=== PATIENT | male | born 1950 | race Caucasian/White ===

== ENCOUNTER 2018-11-30 00:43 | Inpatient (IN) | payer MEDICARE ==
[~2018-11-30] VITALS: Ht 177.8 cm; Wt 73.1 kg
--- NOTE | 2018-11-30 01:08 | NUR ---
PT BIBRA. C/O "GLF AT SNF" PT ALTERED AT BASELINE. FORHEAD LAC NOTED. MD MONTES
--- NOTE | 2018-11-30 01:33 | NUR ---
PATIENT FAMILY AT BEDSIDE. TAKING PATIENT TO CT
--- NOTE | 2018-11-30 02:00 | NUR ---
UNABLE TO COMPLETE CT SCAN. PATIENT MOVING TOO MUCH. MD AWARE
[2018-11-30] MEDS ORDERED: diphenhydrAMINE HCL 50 MG/ML VIAL IV ONE ×2 (02:30→04:00)
[2018-11-30] MEDS ORDERED: LORAZEPAM INJ 2 MG/ML VIAL IV ONE (02:30)
[2018-11-30 02:32] LABS: BASOPHILS # (AUTO) 0.1 /CMM (0.0-0.2); BASOPHILS % (AUTO) 1.1 % (0.0-2.0); EOSINOPHILS % (AUTO) 0.5 % (0.0-6.0); HEMATOCRIT 39 % (39-51); HEMOGLOBIN 12.9 g/dL (13.5-17.5); LYMPHOCYTES # (AUTO) 1.3 /CMM (0.8-4.8); LYMPHOCYTES % (AUTO) 14.5 % (20.0-44.0); MEAN CORPUSCULAR HGB CONC 34 g/dl (31.0-36.0); MEAN CORPUSCULAR VOLUME 90 fL (80-96); MONOCYTES # (AUTO) 0.9 /CMM (0.1-1.30); MONOCYTES % (AUTO) 9.8 % (2.0-12.0); NEUTROPHILS # (AUTO) 6.5 /CMM (1.8-8.9); NEUTROPHILS % (AUTO) 74.1 % (43.0-81.0); PLATELET COUNT (AUTO) 170 /CMM (150-450); WHITE BLOOD COUNT (AUTO) 8.8 K/uL (4.3-11.0)
[2018-11-30 02:40] LABS: CALCIUM, SERUM 8.6 mg/dL (8.5-10.1); CARBON DIOXIDE 26 mmol/L (21-32); CHLORIDE 103 mmol/L (98-107); CREATININE 1.1 mg/dL (0.6-1.3); GLUCOSE 102 mg/dL (74-106); POTASSIUM 4.1 mmol/L (3.5-5.1); SODIUM SERUM 138 mmol/L (136-145); UREA NITROGEN, BLOOD 9 mg/dL (7-18)
[2018-11-30] MEDS ORDERED: diphenhydrAMINE HCL 50 MG/ML VIAL ONE ×2 (02:40→03:45)
[2018-11-30 02:45] LABS: ALANINE AMINOTRANSFERASE 32 U/L (12-78); ALBUMIN 2.6 g/dL (3.4-5.0); ALCOHOL, BLOOD < 3 mg/dL (0-0); ALKALINE PHOSPHATASE 81 U/L (46-116); ASPARTATE AMINOTRANSFERASE 32 U/L (15-37); BILIRUBIN,DIRECT 0.3 mg/dL (0.0-0.2); BILIRUBIN,TOTAL 0.8 mg/dL (0.2-1.0); TOTAL PROTEIN, SERUM 6.4 g/dL (6.4-8.2)
[2018-11-30] MEDS ORDERED: HYDROMORPHONE 1 MG/1 ML DISP.SYRIN ONE (03:11)
[2018-11-30] MEDS ORDERED: HYDROMORPHONE 1 MG/1 ML DISP.SYRIN IV ONE (03:30)
[2018-11-30 03:33] LABS: APPEARANCE,URINE CLOUDY (CLEAR); BILIRUBIN,URINE 1+ (NEGATIVE); BLOOD, URINE TRACE-INTA Ery/uL (NEGATIVE); COLOR,URINE AMBER (YELLOW); KETONES,URINE TRACE (NEGATIVE); LEUKOCYTE ESTERASE ,URINE 1+ (NEGATIVE); NITRITE, URINE POSITIVE (NEGATIVE); PROTEIN,URINE 2+ mg/dl (NEGATIVE); UGLUCOSE NEGATIVE (NEGATIVE); UROBILINOGEN,URINE 0.2 EU/dL (0.2)
[2018-11-30] MEDS ORDERED: CEFTRIAXONE 1 G in IV D5W 50 ML IV ONE (04:00)
[2018-11-30 04:13] LABS: BACTERIA,URINE Many /HPF (None Seen); SQUAMOUS EPITHELIAL CELL,UR Rare /HPF (None Seen); WBC,URINE TOO NUMEROUS TO COUN /HPF (0-3)
[2018-11-30] MEDS ORDERED: CEFTRIAXONE 1GM BAG (ER ONLY) 50 ML IV ONE (04:18)
--- NOTE | 2018-11-30 04:35 | NUR ---
JOSE D JAVIER TALKING TO [facility].
--- NOTE | 2018-11-30 05:25 | NUR ---
RN medsurg notes Received info for new admission Pt from ER nurse SPEEDY Morrissey.
[2018-11-30] MEDS ORDERED: CLON0.1T14 PO (05:27)
--- NOTE | 2018-11-30 05:27 | NUR ---
REPORT GIVEN TO DEVYN RUFF
[2018-11-30] MEDS ORDERED: IV NS 0.9% 1,000 ML IV PRN (05:33)
--- NOTE | 2018-11-30 05:40 | NUR ---
RN medsurg admission notes Pt is arrived at the unit with a gurney from ER. Pt is 68 Y O Male with a diagnose of Mechanical fall by Dr. Hendrickson. Pt is altered. Pt's at the bedside. Respiration is normal. No SOB. No S/S of distress noted. IV sites at Right forearm # 20 is clean, intact and flush without resistance. Skin assessment done and pictures taken and placed at Pt's chart. Pt's belonging checked by VIJAY Jensen. Contact precautions is maintained for C-Diff. Safety precautions is maintained. Bed at low position, brakes locked, side rails upX3, and call light is within reach. Will continue to monitor.
[2018-11-30 05:45] VITALS: BP 94/57
[2018-11-30] MEDS ORDERED: ACETAMINOPHEN 325 MG TABLET PO PRN (06:00)
[2018-11-30] MEDS ORDERED: MAGNESIUM HYDROXIDE 30 ML UDC PO PRN (06:00)
[2018-11-30] MEDS ORDERED: MAG HYDROX/AL HYDROX/SIMETH 30 ML UDC PO PRN (06:00)
[2018-11-30] MEDS ORDERED: Z GUARD REMEDY 2 OZ OINT TP PRN (06:00)
[2018-11-30] MEDS ORDERED: HYDROCODONE/APAP 5/325MG 1 EACH TABLET PO PRN (06:00)
[2018-11-30] MEDS ORDERED: ONDANSETRON HCL/PF 4 MG/2 ML VIAL IVP PRN (06:00)
--- NOTE | 2018-11-30 07:00 | NUR ---
RN medsurg closing notes Pt is resting in bed comfortably. Pt's at the bed side. Respiration is normal. No SOB. No S/S of distress noted. IV sites at R forearm is clean, intact, patent, and SL. Contact precautions is maintained for C-Diff. Safety precautions is maintained. Bed at low position, call light is within reach. Will endorse to morning nurse for GOYO.
--- NOTE | 2018-11-30 07:15 | NUR ---
MS RN NOTES PATIENT IN BED EYES CLOSED, AROUSE TO TACTILE STIMULI. NO ACUTE DISTRESS NOTED, BREATHING UNLABORED. IV ACCESS PATENT AND INTACT, NO REDNESS OR SWELLING NOTED. SAFETY MEASURES IN PLACE. CALL LIGHT WITHIN REACH WILL CONTINUE TO MONITOR ACCORDINGLY.
[2018-11-30] MEDS: PANTOPRAZOLE 40 MG TABLET.DR PO SCH (07:30)
[2018-11-30 08:00] VITALS: BP 87/46
--- NOTE | 2018-11-30 08:30 | NUR ---
MS RN NOTES PATIENT SLEEPING AROUSE TO TACTILE STIMULI, OFFERED MEDICATION DUE, PATIENT TOO SLEEPY WENT BACK TO BED.
[2018-11-30] MEDS: DOCUSATE SODIUM 100 MG CAPSULE PO SCH ×2 (09:00→16:13)
[2018-11-30] MEDS ORDERED: ASCO500T10 PO (09:31)
[2018-11-30] MEDS ORDERED: FOLI1TAB16 PO (09:31)
[2018-11-30] MEDS ORDERED: FAMO20TA8 PO (09:31)
[2018-11-30] MEDS ORDERED: ACET-868 PO (09:31)
[2018-11-30] MEDS ORDERED: CLON0.3P TD (09:31)
[2018-11-30] MEDS ORDERED: VALP250S3 PO (09:31)
[2018-11-30] MEDS ORDERED: L.AC1CAP6 PO (09:31)
[2018-11-30] MEDS ORDERED: [UNRECOGNIZED DRUG - CODE] PO (09:31)
[2018-11-30] MEDS ORDERED: PROT946L PO (09:31)
[2018-11-30] MEDS ORDERED: ALBU2.5V38 IH (09:31)
[2018-11-30] MEDS ORDERED: CLON1TAB12 PO (09:31)
[2018-11-30] MEDS ORDERED: AMLO10TA4 PO (09:31)
[2018-11-30] MEDS ORDERED: THIA100V2 PO (09:31)
[2018-11-30] MEDS ORDERED: TEMA15CA PO (09:31)
[2018-11-30] MEDS ORDERED: TEMAZEPAM 15 MG CAPSULE PO PRN (15:30)
[2018-11-30] MEDS ORDERED: KETOROLAC TROMETHAMINE INJ 30 MG/ML VIAL IM PRN (15:30)
[2018-11-30] MEDS: AMLODIPINE BESYLATE 10 MG TABLET PO SCH (15:30)
[2018-11-30] MEDS ORDERED: hydrALAZINE HCL 25 MG TABLET PO PRN (15:30)
[2018-11-30] MEDS: FOLIC ACID 1 MG TABLET PO SCH (16:12)
[2018-11-30] MEDS: VALPROIC ACID 250 MG/5 ML UDC PO SCH (16:12)
[2018-11-30] MEDS: FAMOTIDINE (20 MG) 20 MG TABLET PO SCH (16:13)
[2018-11-30] MEDS: clonazePAM 1 MG TABLET PO SCH (16:13)
[2018-11-30] MEDS: THIAMINE HCL 100 MG TABLET PO SCH (16:13)
--- NOTE | 2018-11-30 18:15 | NUR ---
MS RN NOTES PATIENT BECOMES AGITATED AND IV ACCESS GOT PULLED OUT ACCIDENTALLY BY PATIENT AND UNABLE TO INSERT NEW IV ACCESS AT THIS TIME NOTIFIED DR DENI CRUZ WITH NEW ORDERS FOR HALDOL LACTATE 0.5 MG IM ONCE. ORDER READ BACK COMPLETE. NOTED AND CARRIED OUT.
[2018-11-30] MEDS ORDERED: HALOPERIDOL LACTATE INJ 5 MG/ML VIAL IM ONE ×2 (18:30→19:00)
--- NOTE | 2018-11-30 18:55 | NUR ---
MS RN NOTES KANA AT BEDSIDE REFUSED HALDOL ADMINISTRATION FOR NOW DESPITE OF EXPLANATION OF RISKS AND BENEFITS.
--- NOTE | 2018-11-30 19:00 | NUR ---
MS RN NOTE RECEIVED PT IN STABLE CONDITION, A/O X1, IN ROOM WITH AND 1:1 SITTER. PT CURRENTLY AGITATED, AND WALKING AROUND ROOM. NO SIGNS OF SOB OR DISTRESS, NO INDICATIONS OF PAIN. PER REPORT FROM RN, PT DOES NOT HAVE IV ACCESS, MD AWARE. ALL CURRENT NEEDS MET. PTS. BED REMAINS LOW, LOCKED, SAFETY PRECAUTIONS IN PLACE. WILL CONT. TO MONITOR.
--- NOTE | 2018-11-30 19:00 | NUR ---
MS RN NOTE PER PT , HALDOL DOES NOT WORK FOR PT. SHE DOES NOT WANT TO GIVE THE HALDOL. RISKS AND BENEFITS MADE AWARE, WITH VERBALIZATION OF UNDERSTANDING.
--- NOTE | 2018-11-30 19:00 | NUR ---
MS RN NOTE SPOKE WITH KANA (), CONTINUES TO REFUSE HALDOL ADMINISTRATION. RISKS AND BENEFITS MADE AWARE WITH VERBALIZATION OF UNDERSTANDING.
--- NOTE | 2018-11-30 19:00 | NUR ---
MS RN NOTES PATIENT LYING IN BED, SITTER AND AT BED STILL AGITATED. NO ACUTE DISTRESS NOTED, BREATHING UNLABORED. NO IV ACCESS AT THIS TIME, DR DENI CRUZ AWARE. SAFETY MEASURES IN PLACE. CALL LIGHT WITHIN REACH. WILL CONTINUE TO MONITOR ACCORDINGLY AND WILL ENDORSE TO NIGHT NURSE FOR CONTINUITY OF CARE.
[2018-11-30] MEDS: ALBUTEROL FS 2.5 MG/3 ML VIAL.NEB IH SCH (19:30)
[2018-11-30 20:00] VITALS: BP 120/72
[2018-12-01] MEDS: ALBUTEROL FS 2.5 MG/3 ML VIAL.NEB IH SCH ×4 (01:30→20:19)
--- NOTE | 2018-12-01 06:21 | NUR ---
MS RN NOTE PT IN STABLE CONDITION, A/O X1, IN ROOM WITH 1:1 SITTER. PT CURRENTLY AWAKE, AGITATED. NO SIGNS OF SOB OR DISTRESS, NO INDICATIONS OF PAIN. NO IV ACCESS, MD AWARE. ALL CURRENT NEEDS MET. PTS. BED REMAINS LOW, LOCKED, SAFETY PRECAUTIONS IN PLACE. WILL CONT. TO MONITOR AND ENDORSE TO NEXT SHIFT FOR GOYO.
--- NOTE | 2018-12-01 07:35 | NUR ---
RN MS OPENING NOTES Patient erceived on room air, no sob noted, no s/s of pain at this time. Patient remains awake and non agitated. 1:1 with male sitter at all times. Patient remains with no IV line at this time, MD aware. Bed at the lowest setting, call light within reach.
[2018-12-01 07:53] LABS: BASOPHILS # (AUTO) 0.1 /CMM (0.0-0.2); BASOPHILS % (AUTO) 0.8 % (0.0-2.0); HEMATOCRIT 38 % (39-51); HEMOGLOBIN 12.8 g/dL (13.5-17.5); LYMPHOCYTES # (AUTO) 1.6 /CMM (0.8-4.8); LYMPHOCYTES % (AUTO) 25.9 % (20.0-44.0); MEAN CORPUSCULAR HGB CONC 34 g/dl (31.0-36.0); MEAN CORPUSCULAR VOLUME 90 fL (80-96); MONOCYTES # (AUTO) 0.7 /CMM (0.1-1.30); MONOCYTES % (AUTO) 11.7 % (2.0-12.0); NEUTROPHILS # (AUTO) 3.6 /CMM (1.8-8.9); NEUTROPHILS % (AUTO) 59.6 % (43.0-81.0); PLATELET COUNT (AUTO) 190 /CMM (150-450); RED BLOOD CELL COUNT(AUTO) 4.28 MIL/uL (4.5-6.0)
[2018-12-01 08:10] LABS: CALCIUM, SERUM 8.6 mg/dL (8.5-10.1); CREATININE 0.8 mg/dL (0.6-1.3); MAGNESIUM 2.3 mg/dL (1.8-2.4); PHOSPHORUS 3.8 mg/dL (2.5-4.9)
[2018-12-01] MEDS: FAMOTIDINE (20 MG) 20 MG TABLET PO SCH ×2 (08:32→16:58)
[2018-12-01] MEDS: AMLODIPINE BESYLATE 10 MG TABLET PO SCH (08:32)
[2018-12-01] MEDS: clonazePAM 1 MG TABLET PO SCH (08:32)
[2018-12-01] MEDS: PANTOPRAZOLE 40 MG TABLET.DR PO SCH (08:33)
[2018-12-01] MEDS: DOCUSATE SODIUM 100 MG CAPSULE PO SCH ×2 (08:33→16:58)
[2018-12-01] MEDS: VALPROIC ACID 250 MG/5 ML UDC PO SCH ×2 (08:33→16:58)
[2018-12-01] MEDS: FOLIC ACID 1 MG TABLET PO SCH (08:33)
[2018-12-01] MEDS: THIAMINE HCL 100 MG TABLET PO SCH ×2 (08:33→13:48)
[2018-12-01 08:43] LABS: THYROID STIMULATING HORMONE 1.158 uIU/mL (0.358-3.74)
--- NOTE | 2018-12-01 10:45 | NUR ---
WOUND CARE CONSULT: PT PRESENTS WITH MULTIPLE WOUNDS AND SKIN ISSUES INCLUDING RAISED AREA TO FOREHEAD, LARGE WOUND WITH YELLOW SLOUGH TO SACRAL AREA EXTENDING TO BUTTOCKS, LEFT WRIST WOUND AND ESCHARS TO LEFT LOWER LEG AND HEELS, PRESENT ON ADMISSION. RECOMMEND SURGICAL CONSULT AND DPM CONSULT. DR LUCIA CARRILLO NOTIFIED OF SURGICAL CONSULT REQUEST. DR BEGUM AWARE OF DPM CONSULT REQUEST. RECOMMENDATIONS MADE FOR WOUND CARE AND SKIN PROTECTION. DISCUSSED WITH NURSING STAFF. DEFER TO DPM FOR LOWER EXTREMITY WOUNDS. WILL SEE PRN. ISOFLEX LOW AIRLOSS BED TO BE PLACED WHEN AVAILABLE. MD IN AGREEMENT WITH PLAN OF CARE. PT MOVES ALMOST CONSTANTLY. PT IS INCONTINENT. Addendum: 12/01/18 at 1048 by VITALY BUNCH WNDNU Amended: Links added.
--- NOTE | 2018-12-01 11:31 | NUR ---
RN MS NOTES Patient removed part of his wound from his Left leg. Eschar was pulled out by patient.
[2018-12-01] MEDS ORDERED: CEFTRIAXONE 1 G VIAL IM ONE (13:00)
[2018-12-01] MEDS ORDERED: clonazePAM 0.5 MG TABLET PO SCH (13:00)
[2018-12-01] MEDS: clonazePAM 0.5 MG TABLET PO SCH ×2 (13:25→16:58)
[2018-12-01] MEDS ORDERED: CEFTRIAXONE 1 G in IV D5W 50 ML IV SCH (14:00)
--- NOTE | 2018-12-01 18:11 | NUR ---
RN MS CLOSING NOTES Patient remains on room aur, no sob noted, patient is awake and sometimes becomes agitated. No IV access because patient removes it. medications taken by patient. Bed at the lowest setting, call light within reach. Will give report to NOC RN for GOYO bedside.
--- NOTE | 2018-12-01 19:15 | NUR ---
MS RN NOTES RECEIVED PT IN BED AWAKE WITH FAMILY AT BEDSIDE WELL 1:1 SITTER. PT A/O X1. RESPIRATIONS EVEN AND UNLABORED WITH NO S/S OF ACUTE DISTRESS OR SOB NOTED. NO COMPLAINTS OF PAIN AT THIS TIME. PT WITHOUT IV ACCESS, AWARE. SAFETY MEASURE IN PLACE WITH BED IN LOWEST LOCKED POSITION WITH SIDE RAILS UP X3. CALL LIGHT WITHIN REACH. WILL CONTINUE TO MONITOR.
[2018-12-02] MEDS: ALBUTEROL FS 2.5 MG/3 ML VIAL.NEB IH SCH ×4 (02:12→19:58)
--- NOTE | 2018-12-02 07:47 | NUR ---
RN MS OPENING NOTES Received patient on room air, no sob noted, no s/s of pain at this time. Patient remains with a 1:1 sitter. Patient shows no agitation at this time. NO IV line. Bed at the lowest setting, call light within reach.
--- NOTE | 2018-12-02 07:48 | NUR ---
MS RN NOTES PT IN BED AWAKE WITH 1:1 SITTER AT BEDSIDE. PT A/O X1. RESPIRATIONS EVEN AND UNLABORED WITH NO S/S OF ACUTE DISTRESS OR SOB NOTED THROUGHOUT SHIFT. PT KEPT CLEAN, DRY, AND COMFORTABLE. PT TURNED Q2 HRS. NO COMPLAINTS OF PAIN AT THIS TIME. PT WITHOUT IV ACCESS, MD AWARE. SAFETY MEASURE IN PLACE WITH BED IN LOWEST LOCKED POSITION WITH SIDE RAILS UP X3. CALL LIGHT WITHIN REACH. WILL ENDORSE TO ONCOMING NURSE FOR GOYO.
[2018-12-02 08:00] VITALS: BP 129/77
[2018-12-02] MEDS ORDERED: clonazePAM 0.5 MG TABLET PO PRN (09:00)
[2018-12-02] MEDS: VALPROIC ACID 250 MG/5 ML UDC PO SCH ×2 (09:09→16:33)
[2018-12-02] MEDS: FOLIC ACID 1 MG TABLET PO SCH (09:09)
[2018-12-02] MEDS: clonazePAM 0.5 MG TABLET PO SCH ×3 (09:09→16:34)
[2018-12-02] MEDS: FAMOTIDINE (20 MG) 20 MG TABLET PO SCH ×2 (09:09→16:34)
[2018-12-02] MEDS: DOCUSATE SODIUM 100 MG CAPSULE PO SCH ×2 (09:09→16:34)
[2018-12-02] MEDS: THIAMINE HCL 100 MG TABLET PO SCH ×2 (09:10→09:35)
[2018-12-02] MEDS: BENZTROPINE MESYLATE (1 MG) 1 MG TABLET PO SCH ×2 (09:10→16:33)
[2018-12-02] MEDS: PANTOPRAZOLE 40 MG TABLET.DR PO SCH (09:10)
[2018-12-02] MEDS: AMLODIPINE BESYLATE 10 MG TABLET PO SCH (09:16)
[2018-12-02] MEDS ORDERED: LEVOFLOXACIN 500 MG /D5W 100ML 500 MG in PREMIX 1 EA IV SCH (10:00)
[2018-12-02] MEDS: LEVOFLOXACIN (500MG) 500 MG TABLET PO SCH (10:45)
[2018-12-02] MEDS ORDERED: risperiDONE 0.25 MG TABLET PO PRN (11:30)
[2018-12-02] MEDS: risperiDONE 1 MG TABLET PO SCH ×2 (12:33→16:33)
[2018-12-02] MEDS ORDERED: CEFTRIAXONE 1 G in IV D5W 50 ML IV SCH (14:00)
[2018-12-02 16:00] VITALS: BP 123/62
--- NOTE | 2018-12-02 18:28 | NUR ---
RN MS CLOSING NOTES Patient remains on room air, no sob noted, vital signs stable. Patient awake, and becomes agitated at times. No IV line present MD aware. Patient with 1:1 male sitter 24 hours a day. Patient able to ambulate with assistance from the sitter. Patient able to sleep today for a few hours. Bed at the lowest setting, call light within reach, side rails up x3. Will give report to RN NOC bedside for GOYO.
--- NOTE | 2018-12-02 19:30 | NUR ---
MS RN OPENING NOTE RECEIVED PATIENT IN BED. A/O X1. TOLERATING ROOM AIR. RESPIRATIONS ARE EVEN AND UNLABORED. NO SIGNS OF SOB. DENIES PAIN AT THIS TIME. NO IV ACCESS. MALE SITTER FOR 1:1. FAMILY AT THE BEDSIDE. BED IS LOW ANS LOCKED, SIDE RAILS UP X2. CALL LIGHT WITHIN REACH. WILL CONTINUE TO MONITOR.
[2018-12-02 20:00] VITALS: BP 121/68
[2018-12-02] MEDS: MUPIROCIN OINT 2% 22 GM TUBE SCH (20:36)
--- NOTE | 2018-12-02 21:27 | NUR ---
MS RN NOTE GAVE REPORT TO LYNN RUFF FOR GOYO.
[2018-12-03] MEDS: ALBUTEROL FS 2.5 MG/3 ML VIAL.NEB IH SCH ×4 (01:30→19:59)
[2018-12-03 06:59] LABS: BASOPHILS % (AUTO) 0.6 % (0.0-2.0); EOSINOPHILS % (AUTO) 2.2 % (0.0-6.0); HEMATOCRIT 36 % (39-51); LYMPHOCYTES # (AUTO) 1.3 /CMM (0.8-4.8); LYMPHOCYTES % (AUTO) 24.4 % (20.0-44.0); MEAN CORPUSCULAR HGB CONC 34 g/dl (31.0-36.0); MEAN CORPUSCULAR VOLUME 89 fL (80-96); MONOCYTES # (AUTO) 0.7 /CMM (0.1-1.30); MONOCYTES % (AUTO) 12.9 % (2.0-12.0); NEUTROPHILS # (AUTO) 3.3 /CMM (1.8-8.9); NEUTROPHILS % (AUTO) 59.9 % (43.0-81.0); PLATELET COUNT (AUTO) 213 /CMM (150-450); RED BLOOD CELL COUNT(AUTO) 4.01 MIL/uL (4.5-6.0); WHITE BLOOD COUNT (AUTO) 5.5 K/uL (4.3-11.0)
--- NOTE | 2018-12-03 07:19 | NUR ---
RN OPENING NOTE PT WAS RECEIVED IN BED AT LOWEST AND LOCKED POSITION WITH SIDE RAILS UPX2, A/O X 1 BREATHING EVEN AND UNLABORED WITH NO S/S OF ANY PAIN OR DISTRESS, ON 1:1 SITTER FOR HISTORY OF BEING AGGRESSIVE AND AGITATED, NO IV IN PLACE BUT MD AWARE, SAFETY PRECAUTIONS IN PLACE, CALL LIGHT WITHIN REACH, WILL MONITOR PT ACCORDINGLY
[2018-12-03 07:23] LABS: POTASSIUM 3.8 mmol/L (3.5-5.1)
[2018-12-03 07:36] LABS: CALCIUM, SERUM 8.2 mg/dL (8.5-10.1); CREATININE 0.6 mg/dL (0.6-1.3)
[2018-12-03 08:13] VITALS: BP 96/47
[2018-12-03] MEDS: MUPIROCIN OINT 2% 22 GM TUBE SCH ×2 (08:19→21:08)
[2018-12-03] MEDS: THIAMINE HCL 100 MG TABLET PO SCH (08:19)
[2018-12-03] MEDS: PANTOPRAZOLE 40 MG TABLET.DR PO SCH (08:19)
[2018-12-03] MEDS: DOCUSATE SODIUM 100 MG CAPSULE PO SCH ×2 (08:19→16:18)
[2018-12-03] MEDS: BENZTROPINE MESYLATE (1 MG) 1 MG TABLET PO SCH ×2 (08:20→16:18)
[2018-12-03] MEDS: FOLIC ACID 1 MG TABLET PO SCH (08:20)
[2018-12-03] MEDS: FAMOTIDINE (20 MG) 20 MG TABLET PO SCH ×2 (08:20→16:18)
[2018-12-03] MEDS: VALPROIC ACID 250 MG/5 ML UDC PO SCH ×2 (08:20→16:18)
[2018-12-03] MEDS: risperiDONE 1 MG TABLET PO SCH ×3 (08:20→16:18)
[2018-12-03] MEDS: clonazePAM 0.5 MG TABLET PO SCH ×3 (08:20→16:18)
[2018-12-03] MEDS: AMLODIPINE BESYLATE 10 MG TABLET PO SCH (08:20)
[2018-12-03] MEDS: LEVOFLOXACIN (500MG) 500 MG TABLET PO SCH (09:00)
[2018-12-03] MEDS ORDERED: CLONIDINE HCL 0.3 MG/24H PTWK 1 EA PATCH TD SCH (09:00)
--- NOTE | 2018-12-03 17:30 | NUR ---
RN NOTE PT WALKING WITH SITTER THROUGHOUT THE UNIT, STEADY GATE NOTED
--- NOTE | 2018-12-03 18:13 | NUR ---
RN CLOSING NOTE PT IN BED AT LOWEST AND LOCKED POSITION WITH SIDE RAILS UPX2, A/O X 1 BREATHING EVEN AND UNLABORED, NO PAIN OR DISTRESS NOTED AT THIS TIME, SITTER AT BEDSIDE, NO IV IN PLACE MD AWARE, SAFETY PRECAUTIONS IN PLACE, CALL LIGHT WITHIN REACH, ALL NEEDS ATTENDED TO, WILL ENDORSE TO NIGHT RN FOR GOYO.
--- NOTE | 2018-12-03 19:20 | NUR ---
MS/RN NOTES RECEIVED PT. LYING IN BED. PT. IS AWAKE AND ALERT TO SELF. PT. NEEDS FREQUENT REORIENTING. PER PT. DAVE PT. 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 BREATHING EVEN AND UNLABORED ON ROOM AIR. NO SOB, RESPIRATORY DISTRESS OR COMPLAINTS OF PAIN NOTED AT THIS TIME. PT. HAS NO IV ACCESS PER DAYSHIFT NURSE AWARE. PT. WITH 1:1 SITTER PRESENT AT BEDSIDE. PT. PRESENT AT BEDSIDE. SAFETY, ASPIRATION AND ISOLATION PRECAUTIONS IMPLEMENTED AND IN PLACE. BED LOCKED AND IN LOWEST POSITION, SIDE RAILS UP X3, BED ALARM ON, CALL LIGHT WITHIN REACH, WILL CONTINUE TO MONITOR.
[2018-12-04] MEDS: ALBUTEROL FS 2.5 MG/3 ML VIAL.NEB IH SCH ×4 (01:30→19:48)
--- NOTE | 2018-12-04 07:00 | NUR ---
MS/RN NOTES PT. IS LYING IN BED. PT. IS AWAKE AND ALERT TO SELF. BREATHING EVEN AND UNLABORED ON ROOM AIR. NO SOB, RESPIRATORY DISTRESS OR COMPLAINTS OF PAIN NOTED AT THIS TIME. PT. HAS NO IV ACCESS, MD AWARE. SAFETY, ASPIRATION AND ISOLATION PRECAUTIONS IMPLEMENTED AND IN PLACE. PT. WITH 1:1 SITTER PRESENT AT BEDSIDE. BED LOCKED AND IN LOWEST POSITION, SIDE RAILS UP X3, BED ALARM ON, CALL LIGHT WITHIN REACH, WILL ENDORSE TO DAYSHIFT NURSE FOR CONTINUITY OF CARE.
--- NOTE | 2018-12-04 07:12 | NUR ---
MS RN OPENING NOTES RECEIVED PT AWAKE IN BED IN NO ACUTE SIGNS OF DISTRESS. 1:1 SITTER AT BEDSIDE. A/O X1. CONFUSED BUT APPEARS COMFORTABLE WITH NO FACIAL GRIMACING OR MOANING NOTED. ON ROOM AIR, BREATHING EVEN AND UNLABORED. NO IV ACCESS, MD AWARE. SAFETY MEASURES IN PLACE. BED IN LOW, LOCKED POSITION WITH SIDE RAILS UP APPROPRIATE. CALL LIGHT WITHIN REACH. WILL CONTINUE TO MONITOR.
[2018-12-04] MEDS: FOLIC ACID 1 MG TABLET PO SCH (08:17)
[2018-12-04] MEDS: PANTOPRAZOLE 40 MG TABLET.DR PO SCH (08:17)
[2018-12-04] MEDS: risperiDONE 1 MG TABLET PO SCH ×3 (08:17→16:57)
[2018-12-04] MEDS: VALPROIC ACID 250 MG/5 ML UDC PO SCH ×2 (08:18→16:57)
[2018-12-04] MEDS: DOCUSATE SODIUM 100 MG CAPSULE PO SCH ×2 (08:18→16:57)
[2018-12-04] MEDS: clonazePAM 0.5 MG TABLET PO SCH ×3 (08:18→16:57)
[2018-12-04] MEDS: THIAMINE HCL 100 MG TABLET PO SCH (08:18)
[2018-12-04] MEDS: FAMOTIDINE (20 MG) 20 MG TABLET PO SCH ×2 (08:18→16:57)
[2018-12-04] MEDS: BENZTROPINE MESYLATE (1 MG) 1 MG TABLET PO SCH ×2 (08:18→16:57)
[2018-12-04] MEDS: MUPIROCIN OINT 2% 22 GM TUBE SCH ×2 (08:19→21:59)
[2018-12-04] MEDS: AMLODIPINE BESYLATE 10 MG TABLET PO SCH (08:24)
[2018-12-04] MEDS: LEVOFLOXACIN (500MG) 500 MG TABLET PO SCH (09:16)
[2018-12-04 16:00] VITALS: BP 123/73
[2018-12-04] MEDS ORDERED: ENSURE ENLIVE 237 ML LIQUID (VANILLA) PO SCH (17:00)
--- NOTE | 2018-12-04 18:44 | NUR ---
RN NOTES PATIENT SEEN AND EVALUATED BY CRISIS HOOP MACHINE OPERATOR PER LIRA RN AND PLACED PT ON 5150 HOLD STARTING TODAY AT 1841 UNTIL 12/07/2018. PT WILL BE UNDER PSYCH CARE BY DR RODRÍGUEZ. WILL ENDORSE TO ANIMAL NUTRITION CONSULTANT NURSE
--- NOTE | 2018-12-04 18:46 | NUR ---
MS RN CLOSING NOTES PT RESTING IN BED AWAKE, ALERT AND ORIENTED X1. VERBALLY RESPONSIVE. CONFUSED ON AND OFF DURING THE DAY. AT BEDSIDE. ON ROOM AIR, TOLERATING WELL WITH NO ACUTE RESPIRATORY DISTRESS NOTED THROUGHOUT THE DAY. CONTACT PRECAUTIONS FOR MRSA OF NARES AND ESBL URINE MAINTAINED. NO IV ACCESS, MD AWARE. ALL NEEDS AND CARE PROVIDED WELL. SAFETY MEASURES KEPT IN PLACE. 1:1 SITTER AT BEDSIDE. BED IN LOW, LOCKED POSITION WITH SIDE-RAILS UP APPROPRIATE. CALL LIGHT WITHIN REACH. WILL ENDORSE TO DEVELOPER ARCHITECT NURSE FOR GOYO
--- NOTE | 2018-12-04 19:57 | NUR ---
MS RN NOTES PATIENT AWAKE IN BED WITH NO DISTRESS NOTED. CALL LIGHT WITHIN REACH. NO C/O PAIN OR DISCOMFORT. FC INTACT AND PATENT. CONTACT ISOLATION OBSERVED AND MAINTAINED. ROOM FREE OF CLUTTER AND BELONGINGS KEPT NEAR BEDSIDE. BED IN LOW LOCK SETTING WITH BED ALARM ON AND FUNCTIONING PROPERLY. WILL CONTINUE TO MONITOR.
--- NOTE | 2018-12-04 22:30 | NUR ---
PATIENT TRANSFERRED VIA WC TO GPS IN STABLE CONDITION. PATIENT ACCOMPANIED BY . BEDSIDE REPORT GIVEN TO REESE.
== END 2018-12-04 22:30 | DRG 689 ==
LOC: ER 00:47 → MED 05:12
PROVIDERS: ADMIT Internal Medicine; ATTEND Nurse Practitioner Acute Care
DX: N39.0 Urinary tract infection, site not specified (principal); G93.41 Metabolic encephalopathy; F03.91 Unspecified dementia, unspecified severity, with behavioral disturbance; E51.9 Thiamine deficiency, unspecified; F05 Delirium due to known physiological condition; S00.83XA Contusion of other part of head, initial encounter; Y92.129 Unspecified place in nursing home as the place of occurrence of the external cause; I25.10 Atherosclerotic heart disease of native coronary artery without angina pectoris; L89.159 Pressure ulcer of sacral region, unspecified stage; I10 Essential (primary) hypertension; D69.6 Thrombocytopenia, unspecified; K21.9 Gastro-esophageal reflux disease without esophagitis; W07.XXXA Fall from chair, initial encounter; T67 Effects of heat and light; T25.02 Burn of unspecified degree of foot; T31.0 Burns involving less than 10% of body surface; V00-Y99 External causes of morbidity; Z82.49 Family history of ischemic heart disease and other diseases of the circulatory system; Z87.891 Personal history of nicotine dependence; Z86.73 Personal history of transient ischemic attack (TIA), and cerebral infarction without residual deficits; Z79.899 Other long term (current) drug therapy; Z73.6 Limitation of activities due to disability; F31.9 Bipolar disorder, unspecified; F19.10 Other psychoactive substance abuse, uncomplicated; B96.1 Klebsiella pneumoniae [K. pneumoniae] as the cause of diseases classified elsewhere
CPT/HCPCS: 36415; 70450-TC; 71045-TC; 72125-TC; 73030-TC; 73080-TC; 80048-TC; 80061-TC; 80076-TC; 81000-TC; 83735-TC; 84100-TC; 84443-TC; 84484-TC; 85025-TC; 85730-TC; 87081-TC; 87086-TC; 87186-TC; 92526; 92611-TC; 93307-TC; 97110-TC; 97116-TC; 97530-TC; A4216; A6253; A6403; G0378; G0480; J0696; J1170; J1200; J1630; J1956; J7030; J7060

== ENCOUNTER 2018-12-04 23:21 | Inpatient (IN) | payer MEDICARE ==
[~2018-12-04] VITALS: Ht 177.8 cm; Wt 64.4 kg
--- NOTE | 2018-12-04 23:00 | NUR ---
Admitted a 68 y/o male from [facility] and evaluated at [address] On 5150 hold as GD. Patient admitting Dx. Psychosis. Medical dx. hypertension, dementia, GERD, heat stroke, thrombocytopenia. Per hold, patient is confused, anxious, restless and agitation. patient has no known allergy. Upon face to face evaluation, patient appeared alert and oriented x 1, anxious, confused, disorganize, anxious, restless, bizarre behavior, responsive to internal stimuli, pacing, dishevelled and hard to redirect. Explanation provided to the patient and , limit settings done and redirected the patient. Explained the paper works and patient's signed the consents. Informed of visiting hours and unit policies. Belongings and contraband checked. Q15 min checks initiated. Care plan started. Vital signs checked and recorded. Patient's rights discussed, guide to prescription meds handbook provided. Patient advised of the hold. Notified Dr. Dumont of the admission. Will monitor patient for mood, safety and behavior. Will endorse to the day shift.
[~2018-12-04 23:21] MED LIST: ACET-868 PO; ALBU2.5V38 IH; AMLO10TA4 PO; ASCO500T10 PO; CLON0.3P TD; CLON1TAB12 PO; FAMO20TA8 PO; FOLI1TAB16 PO; L.AC1CAP6 PO; PROT946L PO; TEMA15CA PO; THIA100V2 PO; VALP250S3 PO; [UNRECOGNIZED DRUG - CODE] PO
[2018-12-04] MEDS ORDERED: MAG HYDROX/AL HYDROX/SIMETH 30 ML UDC PO PRN (23:30)
[2018-12-04] MEDS ORDERED: MAGNESIUM HYDROXIDE 30 ML UDC PO PRN (23:30)
[2018-12-04] MEDS ORDERED: BLOOD SUGAR DIAGNOSTIC 1 EACH STRIP IN ONE (23:30)
[2018-12-05] MEDS ORDERED: ACETAMINOPHEN 325 MG TABLET PO PRN
[2018-12-05 01:12] VITALS: BP 153/80
[2018-12-05] MEDS: ALBUTEROL FS 2.5 MG/3 ML VIAL.NEB IH SCH ×4 (01:30→19:30)
[2018-12-05] MEDS: TEMAZEPAM 7.5 MG CAPSULE PO PRN ×2 (01:41→23:55)
[2018-12-05] MEDS: ACETAMINOPHEN 325 MG TABLET PO PRN (01:43)
[2018-12-05] MEDS: clonazePAM 0.5 MG TABLET PO PRN ×2 (02:43→22:29)
[2018-12-05 07:12] LABS: CHOLESTEROL 153 mg/dL (<200); HDL CHOLESTEROL 25 mg/dL (40-60); LDL 105 mg/dL (0-99); TRIGLYCERIDES 125 mg/dL (30-150)
--- NOTE | 2018-12-05 08:15 | NUR ---
GPS/RN - Assessment Patient in bed, alert to self, confused and disoriented, reality orientation provided, no s/s of pain, stable on room air, afebrile, anxious, agitated, restless. Wound care consulted for multiple skin breakdown, see skin assessment. Fall, aspiration and contact precautions maintained for ESBL urine and MRSA nares. All needs attended. Sitter at bedside for close monitoring. Will continue to monitor q15 mins for safety and behavior.
--- NOTE | 2018-12-05 08:47 | NUR ---
WOUND CARE CONSULT: PT PRESENTS WITH MULTIPLE WOUNDS, PRESENT ON ADMISSION INCLUDING NECROTIC WOUND TO SACRUM WHICH EXTENDS TO BUTTOCKS. RECOMMEND SURGICAL AND DPM CONSULTS. DR LUCIA CARRILLO AND DR MONTIEL NOTIFIED OF CONSULT REQUESTS. PT ON ISOFLEX LOW AIRLOSS BED. ALL SKIN PROTECTION RECOMMENDATIONS AND WOUND CARE RECOMMENDATIONS FOR SACRAL WOUND DISCUSSED WITH NURSING STAFF. DEFER TO DPM FOR LOWER EXTREMITY WOUNDS. WILL SEE PRN. JAVIER IN AGREEMENT WITH PLAN OF CARE. Addendum: 12/05/18 at 0849 by VITALY BUNCH WNDNU Amended: Links added.
[2018-12-05] MEDS ORDERED: HYDROGEL DRESSING 90 GM TUBE TP PRN (09:00)
[2018-12-05] MEDS: AMLODIPINE BESYLATE 10 MG TABLET PO SCH (09:00)
[2018-12-05] MEDS ORDERED: Thiamine 100 MG/ML VIAL IJ SCH (09:00)
[2018-12-05] MEDS ORDERED: Z GUARD REMEDY 2 OZ OINT TP PRN (09:00)
[2018-12-05] MEDS: FAMOTIDINE (20 MG) 20 MG TABLET PO SCH ×2 (09:13→17:23)
[2018-12-05] MEDS: ASCORBIC ACID 500 MG TABLET PO SCH ×2 (09:13→17:23)
[2018-12-05] MEDS: FOLIC ACID 1 MG TABLET PO SCH (09:13)
[2018-12-05] MEDS: MULTIVITAMINS,THERAGRAN 1 UDTAB TABLET PO SCH (09:13)
[2018-12-05] MEDS: THIAMINE HCL 100 MG TABLET PO SCH (09:13)
[2018-12-05] MEDS: Z GUARD REMEDY 2 OZ OINT TP SCH (09:13)
[2018-12-05] MEDS: PROSOURCE / PROSTAT (PYXIS) 30 ML UDC PO SCH (09:13)
[2018-12-05] MEDS: HYDROGEL DRESSING 90 GM TUBE TP SCH (10:00)
[2018-12-05] MEDS ORDERED: clonazePAM 0.5 MG TABLET PO PRN (11:00)
[2018-12-05] MEDS: DAKINS QUARTER STRENGTH (0.125%) 480 ML BOTTLE TOP SCH (11:00)
[2018-12-05] MEDS: LEVOFLOXACIN (500MG) 500 MG TABLET PO SCH (11:24)
[2018-12-05] MEDS: risperiDONE-M 0.5 MG TAB.RAPDIS PO SCH ×2 (12:31→17:23)
--- NOTE | 2018-12-05 15:20 | NUR ---
SW contacted [facility] Address: [address] , [place] [address] and spoke with Shanon admissions gate attendant who stated that pt is able to return if pts agreed to pt returning.
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
[2018-12-05] MEDS: BENZTROPINE MESYLATE (1 MG) 1 MG TABLET PO SCH (17:22)
--- NOTE | 2018-12-05 18:48 | NUR ---
GPS/RN - End of shift summary No significant change in condition, remain confused, restless, agitated, keeps on removing his wound dressings. at bedside updated on pt's condition. Will continue with current plan of care.
--- NOTE | 2018-12-05 19:47 | NUR ---
RN OPENING NOTES RECEIVED REPORT FROM VICENTE RUFF. PATIENT A/A/O X1-2 TO SELF & PLACE BUT WITH CONFUSION AND RESTLESSNESS NOTED. BREATHING EVEN & UNLABORED, TOLERATING ROOM AIR. NO S/S OF RESPIRATORY DISTRESS NOTED. RADIAL PULSES PRESENT. NO IV SITE @ THIS TIME. DENIES ANY PAIN OR DISCOMFORT @ THIS TIME. SAFETY MEASURES IN PLACE W/ SIDE RAILS UP & SITTER @ BEDSIDE FOR CLOSE OBSERVATION. [address] WILL CONTINUE TO MONITOR.
[2018-12-05 20:00] VITALS: BP 166/91
[2018-12-05] MEDS: MUPIROCIN OINT 2% 22 GM TUBE SCH (21:03)
[2018-12-06] MEDS: ALBUTEROL FS 2.5 MG/3 ML VIAL.NEB IH SCH ×4 (01:03→19:08)
[2018-12-06] MEDS: clonazePAM 0.5 MG TABLET PO PRN ×3 (04:02→21:29)
--- NOTE | 2018-12-06 06:36 | NUR ---
RN NOTES PATIENT RESTLESS AND ANXIOUS FOR MOST OF THE NIGHT & TAKING OFF WOUND DRESSINGS. PRN KLONOPIN GIVEN X2 & PRN RESTORIL GIVEN @ BEDTIME BUT STILL NOTED W/ RESTLESSNESS.
--- NOTE | 2018-12-06 07:58 | NUR ---
GPS OVERFLOW RN NOTES PATIENT RECEIVED RESTING INSIDE ROOM. SLEEPING, EASILY AROUSABLE THROUGH VERBAL AND TACTILE STIMULI. PATIENT WITH DISORGANIZED THOUGHT PROCESS. BREATHING EVEN AND UNLABORED. NO ACUTE DISTRESS. DENIES ANY PAIN OR DISCOMFORT. SITTER AT BEDSIDE. MAINTAINED ISOLATION PRECAUTIONS. WILL CONTINUE TO MONITOR. BED LOCKED AND IN LOW POSITION. BILATERAL UPPER SIDE RAILS UP AND LOCKED. CALL LIGHT WITHIN EASY REACH
[2018-12-06] MEDS: MULTIVITAMINS,THERAGRAN 1 UDTAB TABLET PO SCH (09:16)
[2018-12-06] MEDS: AMLODIPINE BESYLATE 10 MG TABLET PO SCH (09:16)
[2018-12-06] MEDS: BENZTROPINE MESYLATE (1 MG) 1 MG TABLET PO SCH ×2 (09:16→17:30)
[2018-12-06] MEDS: ASCORBIC ACID 500 MG TABLET PO SCH ×2 (09:16→17:30)
[2018-12-06] MEDS: FAMOTIDINE (20 MG) 20 MG TABLET PO SCH ×2 (09:16→17:29)
[2018-12-06] MEDS: FOLIC ACID 1 MG TABLET PO SCH (09:16)
[2018-12-06] MEDS: risperiDONE-M 0.5 MG TAB.RAPDIS PO SCH ×3 (09:16→17:30)
[2018-12-06] MEDS: THIAMINE HCL 100 MG TABLET PO SCH (09:16)
[2018-12-06] MEDS: PROSOURCE / PROSTAT (PYXIS) 30 ML UDC PO SCH (09:20)
[2018-12-06] MEDS: MUPIROCIN OINT 2% 22 GM TUBE SCH ×2 (09:55→21:28)
[2018-12-06] MEDS: DAKINS QUARTER STRENGTH (0.125%) 480 ML BOTTLE TOP SCH (09:56)
[2018-12-06] MEDS: Z GUARD REMEDY 2 OZ OINT TP SCH (09:57)
[2018-12-06] MEDS: HYDROGEL DRESSING 90 GM TUBE TP SCH (09:57)
--- NOTE | 2018-12-06 12:13 | NUR ---
JOHNY and Psychiatrist Dr. Caicedo spoke with pts Nathalia [phone] regarding pts treatment.
[2018-12-06] MEDS: LEVOFLOXACIN (500MG) 500 MG TABLET PO SCH (12:44)
--- NOTE | 2018-12-06 18:10 | NUR ---
GPS OV RN NOTES PATIENT AWAKE, ALERT AND ORIENTED X 1-2, WITH DISORGANIZED THOUGHT PROCESS. DENIES SI/HI. NO ACUTE DISTRESS. NO C/O PAIN OR DISCOMFORT. PATIENT KEPT CLEAN, DRY AND COMFORTABLE. MAINTAINED ISOLATION PRECAUTIONS. SITTER AT BEDSIDE.
--- NOTE | 2018-12-06 18:11 | NUR ---
GPS OV RN NOTES PATIENT LEFT UNIT FOR CT SCAN. LEFT IN STABLE CONDITION. NO ACUTE DISTRESS. NO C/O PAIN OR DISCOMFORT
--- NOTE | 2018-12-06 18:35 | NUR ---
GPS OV RN NOTES PATIENT BACK AT UNIT. ASSISTED BACK TO BED TO A COMFORTABLE POSITION. PATIENT SLEEPING, EASILY AROUSABLE THROUGH VERBAL AND TACTILE STIMULI. AND SITTER AT BEDSIDE. MAINTAINED ISOLATION PRECAUTIONS. PATIENT KEPT CLEAN, DRY AND COMFORTABLE. WILL ENDORSE TO INCOMING SHIFT FOR GOYO
--- NOTE | 2018-12-06 19:30 | NUR ---
GPS OVERFLOW RN NOTE: PATIENT RESTING IN BED, NO ACUTE DISTRESS NOTED, AT BEDSIDE. BREATHING EVEN AND UNLABORED, NO SOB NOTED. PATIENT CALM AT THIS TIME. SITTER AT BEDSIDE. ISOLATION PRECAUTION OBSERVED. BED LOCKED AND IN LOWEST POSITION, CALL LIGHT IN REACH. WILL CONTINUE TO MONITOR
[2018-12-06] MEDS: ATORVASTATIN 10 MG TABLET PO SCH (21:29)
--- NOTE | 2018-12-06 21:30 | NUR ---
GPS OVERFLOW RN NOTE: PATIENT AGITATED AND RESTLESS, KLONIPIN 0.5MG ORAL GIVEN PER MD ORDER. WILL CONTINUE TO MONITOR.
[2018-12-06] MEDS: TEMAZEPAM 7.5 MG CAPSULE PO PRN (23:00)
--- NOTE | 2018-12-06 23:15 | NUR ---
GPS OVERFLOW RN NOTE: PATIENT AGITATED AND RESTLESS, PATIENT REQUESTING FOR SLEEPING MEDICATION. RESTORIL 7.5MG ORAL GIVEN PER MD ORDER. WILL CONTINUE TO MONITOR.
[2018-12-07] MEDS: ALBUTEROL FS 2.5 MG/3 ML VIAL.NEB IH SCH ×4 (01:09→19:30)
[2018-12-07] MEDS: clonazePAM 0.5 MG TABLET PO PRN ×2 (03:40→16:32)
--- NOTE | 2018-12-07 04:05 | NUR ---
GPS OVERFLOW RN NOTE: PATIENT AGITATED AND RESTLESS, KLONIPIN 0.5MG ORAL GIVEN PER MD ORDER. WILL CONTINUE TO MONITOR.
--- NOTE | 2018-12-07 06:15 | NUR ---
GPS OVERFLOW RN NOTE: PATIENT RESTING IN BED, NO ACUTE DISTRESS NOTED. BREATHING EVEN AND UNLABORED, NO SOB NOTED. SITTER AT BEDSIDE. ISOLATION PRECAUTION OBSERVED. BED LOCKED AND IN LOWEST POSITION, CALL LIGHT IN REACH. WILL ENDORSE TO DAY NURSE TO CONTINUE WITH PLAN OF CARE.
--- NOTE | 2018-12-07 07:30 | NUR ---
RN GPS NOTES PT IN BED, ASLEEP, EASY TO AROUSE, CALM AT THIS TIME, SITTER AT BEDSIDE, CALL LIGHT WITHIN REACH, KEPT WARM AND COMFORTABLE IN BED.
[2018-12-07 08:00] VITALS: BP 129/75
[2018-12-07] MEDS: PROSOURCE / PROSTAT (PYXIS) 30 ML UDC PO SCH (09:00)
[2018-12-07] MEDS: DAKINS QUARTER STRENGTH (0.125%) 480 ML BOTTLE TOP SCH (09:20)
[2018-12-07] MEDS: HYDROGEL DRESSING 90 GM TUBE TP SCH (09:21)
[2018-12-07] MEDS: MUPIROCIN OINT 2% 22 GM TUBE SCH ×2 (09:21→21:00)
[2018-12-07] MEDS: Z GUARD REMEDY 2 OZ OINT TP SCH (09:21)
[2018-12-07 10:58] LABS: BASOPHILS % (AUTO) 0.5 % (0.0-2.0); HEMATOCRIT 39 % (39-51); LYMPHOCYTES # (AUTO) 1.5 /CMM (0.8-4.8); LYMPHOCYTES % (AUTO) 24.7 % (20.0-44.0); MEAN CORPUSCULAR HGB CONC 34 g/dl (31.0-36.0); MEAN CORPUSCULAR VOLUME 89 fL (80-96); MONOCYTES # (AUTO) 0.8 /CMM (0.1-1.30); MONOCYTES % (AUTO) 12.1 % (2.0-12.0); NEUTROPHILS # (AUTO) 3.8 /CMM (1.8-8.9); NEUTROPHILS % (AUTO) 60.7 % (43.0-81.0); PLATELET COUNT (AUTO) 225 /CMM (150-450); RED BLOOD CELL COUNT(AUTO) 4.38 MIL/uL (4.5-6.0); WHITE BLOOD COUNT (AUTO) 6.3 K/uL (4.3-11.0)
[2018-12-07 11:14] LABS: ALBUMIN 2.8 g/dL (3.4-5.0); BILIRUBIN,TOTAL 0.5 mg/dL (0.2-1.0); CALCIUM, SERUM 8.7 mg/dL (8.5-10.1); CREATININE 0.7 mg/dL (0.6-1.3); MAGNESIUM 1.9 mg/dL (1.8-2.4); POTASSIUM 3.2 mmol/L (3.5-5.1); TOTAL PROTEIN, SERUM 6.5 g/dL (6.4-8.2)
[2018-12-07] MEDS: FAMOTIDINE (20 MG) 20 MG TABLET PO SCH ×2 (11:14→16:23)
[2018-12-07] MEDS: risperiDONE-M 0.5 MG TAB.RAPDIS PO SCH ×3 (11:14→16:23)
[2018-12-07] MEDS: ASCORBIC ACID 500 MG TABLET PO SCH ×2 (11:15→16:23)
[2018-12-07] MEDS: MULTIVITAMINS,THERAGRAN 1 UDTAB TABLET PO SCH (11:15)
[2018-12-07] MEDS: AMLODIPINE BESYLATE 10 MG TABLET PO SCH (11:15)
[2018-12-07] MEDS: FOLIC ACID 1 MG TABLET PO SCH (11:15)
[2018-12-07] MEDS: THIAMINE HCL 100 MG TABLET PO SCH (11:15)
[2018-12-07] MEDS: BENZTROPINE MESYLATE (1 MG) 1 MG TABLET PO SCH ×2 (11:15→16:23)
[2018-12-07] MEDS: LEVOFLOXACIN (500MG) 500 MG TABLET PO SCH (12:02)
--- NOTE | 2018-12-07 12:55 | NUR ---
RN GPS NOTES PT IN BED, SLEEPY, VERBALLY RESPONSIVE, WITH CONFUSION, REDIRECTED NEEDED, SITTER AT BEDSIDE, SEEN BY DR. WARNER, PT ALSO SEEN BY DR. NG, ORDERS GIVEN AND CARRIED OUT, SAFETY PRECAUTIONS OBSERVED.
[2018-12-07] MEDS ORDERED: POTASSIUM CHLORIDE 20 MEQ TAB.PRT.SR PO ONE (13:00)
[2018-12-07 16:00] VITALS: BP 136/78
--- NOTE | 2018-12-07 18:19 | NUR ---
RN GPS NOTES PT IN BED, AWAKE, ALERT TO SELF, WITH CONFUSION, CALM AND REDIRECTABLE, COMPLIANT WITH MEDS, ASSISTED WITH DINNER, ASSISTED TO BATHROOM NEEDED, WOUND TREATMENT AND DRESSING CHANGE DONE, SAFETY PRECAUTIONS OBSERVED, SITTER AT BEDSIDE, ALL NEEDS ATTENDED.
[2018-12-07 20:00] VITALS: BP 105/86
[2018-12-07] MEDS ORDERED: OLANZAPINE 10 MG VIAL IM ONE (20:30)
--- NOTE | 2018-12-07 21:01 | NUR ---
MS/RN ZYPREXA 3 MG IM WAS GIVEN ORDERED. WILL CONTINUE TO MONITOR.
[2018-12-07] MEDS: ATORVASTATIN 10 MG TABLET PO SCH (22:00)
[2018-12-07] MEDS: TEMAZEPAM 7.5 MG CAPSULE PO PRN (23:12)
--- NOTE | 2018-12-07 23:29 | NUR ---
MS/RN PATIENT WAS ABLE TO SLEEP FOR ABOUT 45 MINUTES AFTER THE ZYPREXA, THE PATIENT PATIENT WAS BROUGHT DOWN FOR CAT OF THE THE HEAD, AND CAME BACK AWAKE BUT CALM. PATIENT IS AWAKE AT THIS TIME AND IS STARTING TO AGITATE, ATTEMPTED TO GIVE RESTORIL ORDERED BUT REFUSED AT THIS TIME. WILL CONTINUE TO MONITOR PATIENT.
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
--- NOTE | 2018-12-08 00:03 | NUR ---
MS/RN PATIENT REFUSED THE RESTORIL THAT WAS OFFERED EARLIER. UNABLE TO RETURN THE RESTORIL IT WAS MIXED WITH APPLE SAUCE.
[2018-12-08] MEDS: ALBUTEROL FS 2.5 MG/3 ML VIAL.NEB IH SCH ×4 (01:16→19:23)
--- NOTE | 2018-12-08 01:27 | NUR ---
MS/RN PATIENT IS SLEEPING AT THIS TIME, APPEAR COMFORTABLE, NO DISTRESS NOTED, SITTER AT BEDSIDE. WILL CONTINUE TO MONITOR.
--- NOTE | 2018-12-08 06:15 | NUR ---
MS/RN PATIENT IS SLEEPING, NO DISTRESS NOTED, SITTER AT BEDSIDE, ALL NEEDS ATTENDED AT THIS TIME, WILL CONTINUE TO MONITOR.
[2018-12-08 08:00] VITALS: BP 157/78
[2018-12-08] MEDS: risperiDONE-M 0.5 MG TAB.RAPDIS PO SCH ×2 (08:17→19:56)
[2018-12-08] MEDS: FOLIC ACID 1 MG TABLET PO SCH (08:18)
[2018-12-08] MEDS: AMLODIPINE BESYLATE 10 MG TABLET PO SCH (08:18)
[2018-12-08] MEDS: BENZTROPINE MESYLATE (1 MG) 1 MG TABLET PO SCH ×3 (08:18→19:56)
[2018-12-08] MEDS: THIAMINE HCL 100 MG TABLET PO SCH (08:18)
[2018-12-08] MEDS: ASCORBIC ACID 500 MG TABLET PO SCH ×2 (08:18→16:25)
[2018-12-08] MEDS: MULTIVITAMINS,THERAGRAN 1 UDTAB TABLET PO SCH (08:18)
[2018-12-08] MEDS: FAMOTIDINE (20 MG) 20 MG TABLET PO SCH ×2 (08:18→16:10)
[2018-12-08] MEDS: HYDROGEL DRESSING 90 GM TUBE TP SCH (09:00)
[2018-12-08] MEDS: ASPIRIN 81 MG TAB.CHEW PO SCH (09:00)
[2018-12-08] MEDS: DAKINS QUARTER STRENGTH (0.125%) 480 ML BOTTLE TOP SCH (09:00)
[2018-12-08] MEDS: Z GUARD REMEDY 2 OZ OINT TP SCH (09:00)
[2018-12-08] MEDS: PROSOURCE / PROSTAT (PYXIS) 30 ML UDC PO SCH (09:00)
[2018-12-08] MEDS: MUPIROCIN OINT 2% 22 GM TUBE SCH ×2 (09:00→21:00)
[2018-12-08] MEDS: LEVOFLOXACIN (500MG) 500 MG TABLET PO SCH (12:00)
--- NOTE | 2018-12-08 13:10 | NUR ---
PER LEVAQUIN PO CHANGED TO LEVAQUIN IV 500 MG Q24H. IV LINE INSERTED TO LEFT ARM G 22 H/L , FLUSHING WELL
--- NOTE | 2018-12-08 14:22 | NUR ---
GROUP NOTE: Pt unable to attend group due to pt being aggressive and refusing medications. Pt is in the medical/surgical floor and is on a 1:1. Pt is only alert and oriented to himself otherwise, pt is confused, disoriented, and disorganized.
[2018-12-08] MEDS: LEVOFLOXACIN 500 MG /D5W 100ML 500 MG in PREMIX 1 EA IV SCH (15:12)
[2018-12-08 16:00] VITALS: BP 117/62
[2018-12-08 16:01] VITALS: BP 117/62
[2018-12-08] MEDS ORDERED: risperiDONE-M 0.5 MG TAB.RAPDIS PO SCH (17:00)
--- NOTE | 2018-12-08 17:41 | NUR ---
patient became agitated and aggressive. Paged Dr. Sascha Cam.
--- NOTE | 2018-12-08 17:45 | NUR ---
received an order Zyprexa 5mg IM once per Dr. Caicedo
--- NOTE | 2018-12-08 17:59 | NUR ---
Zyprexa IM administrated as ordered
[2018-12-08] MEDS ORDERED: OLANZAPINE 10 MG VIAL IM ONE ×2 (18:00→22:30)
--- NOTE | 2018-12-08 18:44 | NUR ---
patient calm at this time, resting in bed , at bedside. IV Levaquin running as ordered. Unable to change dressing : patient refused x2. Safety precautions observed and implemented, patient high risk of fall. Bed in low and locked position, side rails up x3. Sitter at bedside. Will endorse to next shift for GOYO.
--- NOTE | 2018-12-08 19:49 | NUR ---
MS/RN SPOKE TO DR. WARNER, GAVE HER UPDATE ABOUT PATIENT'S CONDITION, INFORMED DR. WARNER THAT PATIENT IS VERY RESTLESS AND AGITATED AT THIS TIME. PER DR. WARNER SHE WILL ENTER MEDICATION ORDERS AND REQUESTED TO TALK TO THE PHARMACIST. CALL WAS TRANSFERRED TO THE PHARMACY.
[2018-12-08] MEDS: clonazePAM 0.5 MG TABLET PO PRN (19:56)
--- NOTE | 2018-12-08 20:01 | NUR ---
MS/RN RISPERDAL 1 MG PO, COGENTIN 1 MG PO AND KLONOPIN 0.5 MG PO WERE SUCCESSFULLY ADMINISTERED PER ORDER BY DR. WARNER. NAIN SULTANA TO MONITOR PATIENT.
[2018-12-08 20:30] VITALS: BP 125/78
--- NOTE | 2018-12-08 20:51 | NUR ---
MS/RN RECEIVED A CALL FROM DR. WARNER, GAVE HER UPDATE OF THE PATIENT'S CONDITION AT THIS TIME, THAT PATIENT IS STILL AWAKE, STILL RESTLESS BUT BETTER THAN BEFORE THE MEDS WERE GIVEN. DR. WARNER INSTRUCTED ME TO GIVE ANOTHER DOSE OF RISPERDAL 1 MG NOW.
[2018-12-08] MEDS: risperiDONE-M 0.5 MG TAB.RAPDIS PO PRN (20:55)
[2018-12-08] MEDS: ATORVASTATIN 10 MG TABLET PO SCH (22:04)
--- NOTE | 2018-12-08 22:31 | NUR ---
MS/RN PATIENT STILL VERY AGITATED AND RESTLESS, TRYING TO GET OUT OF BED. CALLED AND SPOKE TO DR. WARNER WITH ORDER TO GIVE ZYPREXA 10 MG IM X 1 WAS RECEIVED.
--- NOTE | 2018-12-08 23:03 | NUR ---
MS/RN ZYPREXA 10 MG IM WAS GIVEN ORDERED. WILL MONITOR.
[2018-12-09] MEDS: ALBUTEROL FS 2.5 MG/3 ML VIAL.NEB IH SCH ×4 (01:30→19:30)
--- NOTE | 2018-12-09 06:35 | NUR ---
MS/RN PATIENT IS AWAKE AT THIS TIME, MILD RESTLESSNESS NOTED, NO DISTRESS NOTED, PATIENT WAS ABLE TO SLEEP FOR APPROXIMATELY 3 HOURS. ALL NEEDS ATTENDED AT THIS TIME, WILL CONTINUE TO MONITOR.
[2018-12-09] MEDS ORDERED: risperiDONE 1 MG TABLET ONE (07:10)
[2018-12-09] MEDS: risperiDONE-M 0.5 MG TAB.RAPDIS PO PRN ×2 (07:13→22:08)
[2018-12-09] MEDS: clonazePAM 0.5 MG TABLET PO PRN ×2 (07:14→13:39)
--- NOTE | 2018-12-09 07:17 | NUR ---
MS/RN SPOKE TO DR. WARNER VIA PHONE, GAVE UPDATE ABOUT THE PATIENT WHO IS STARTING TO GET RESTLESS AND AGITATED. DR. WARNER INSTRUCTED ME TO GIVE PATIENT RISPERDAL 1 MG AND KLONOPIN 0.5 MG FROM PRN ORDERS. MEDS GIVEN. WILL ENDORSE TO NEXT RN.
[2018-12-09 08:00] VITALS: BP_SYST 131; BP_SYST 151; BP_DIAS 74; BP_DIAS 83
[2018-12-09] MEDS: ASCORBIC ACID 500 MG TABLET PO SCH ×2 (08:35→16:30)
[2018-12-09] MEDS: MULTIVITAMINS,THERAGRAN 1 UDTAB TABLET PO SCH (08:36)
[2018-12-09] MEDS: FOLIC ACID 1 MG TABLET PO SCH (08:36)
[2018-12-09] MEDS: BENZTROPINE MESYLATE (1 MG) 1 MG TABLET PO SCH ×3 (08:36→20:39)
[2018-12-09] MEDS: FAMOTIDINE (20 MG) 20 MG TABLET PO SCH ×2 (08:36→16:30)
[2018-12-09] MEDS: ASPIRIN 81 MG TAB.CHEW PO SCH (08:36)
[2018-12-09] MEDS: AMLODIPINE BESYLATE 10 MG TABLET PO SCH (08:37)
[2018-12-09] MEDS: PROSOURCE / PROSTAT (PYXIS) 30 ML UDC PO SCH (08:37)
[2018-12-09] MEDS: THIAMINE HCL 100 MG TABLET PO SCH (08:38)
[2018-12-09] MEDS: DAKINS QUARTER STRENGTH (0.125%) 480 ML BOTTLE TOP SCH (09:00)
[2018-12-09] MEDS: Z GUARD REMEDY 2 OZ OINT TP SCH (09:00)
[2018-12-09] MEDS: HYDROGEL DRESSING 90 GM TUBE TP SCH (09:00)
[2018-12-09] MEDS: MUPIROCIN OINT 2% 22 GM TUBE SCH ×2 (09:00→21:00)
[2018-12-09] MEDS ORDERED: VALPROATE 250 MG in IV D5W 100 ML IV SCH ×2 (10:00→13:00)
--- NOTE | 2018-12-09 10:00 | NUR ---
an new IV asses to the left arm 22g h/l. Flashing well
[2018-12-09] MEDS: VALPROIC ACID 250 MG/5 ML UDC PO SCH ×3 (10:28→16:30)
[2018-12-09] MEDS: risperiDONE-M 0.5 MG TAB.RAPDIS PO SCH ×2 (13:04→20:40)
[2018-12-09] MEDS: LEVOFLOXACIN 500 MG /D5W 100ML 500 MG in PREMIX 1 EA IV SCH (13:33)
[2018-12-09 16:00] VITALS: BP 123/76
--- NOTE | 2018-12-09 18:57 | NUR ---
patient calm and resting this time in bed, at bedside. IV line remain intact and patent. Was able to change dressing. Patient kept clean and dry,hydrogel applied. Safety precautions observed and implemented, patient high risk of fall. Bed in low and locked position, side rails up x3. Sitter at bedside. Will endorse to next shift for GOYO.
[2018-12-09 20:00] VITALS: BP 135/91
--- NOTE | 2018-12-09 20:00 | NUR ---
rn initial notes: pt in bed, met with at bed side. pt very confused, disoriented, demented, unable to perform any adls, episode of being aggressive and combative, restless, agitated, needs multiple redirection but not effective. seen by dr saleem at 2100. pt been having loose stools, cdiff specimen sent, awaiting result, pt on iv atb during the day. pt able to take meds, crushed with apple sauce. unable to determine for any si/hi due to pt's mental status. very involved in pt's care. safety precautions for fall initiated, side rails up x3 isaiah safety, on 1:1 sitter. will continue monitoring pt [id number] for safety and any changes in behavior.
[2018-12-09] MEDS: ATORVASTATIN 10 MG TABLET PO SCH (20:40)
--- NOTE | 2018-12-09 21:14 | NUR ---
PT REFUSED TO BE TOUCH AND HAVE HIS NOSE TOUCH. AT BED SIDE, PT STARTED BEING IRRITATED, RESTLESS, DR REED CURRENTLY IN THE UNIT, PT'S REFUSING FOR ANY RESTRAINTS. SITTER AT BED SIDE.
--- NOTE | 2018-12-09 21:20 | NUR ---
RN NOTES: PER DR REED HE WAS PSYCH SEO EXECUTIVE COVERING DR WARNER
--- NOTE | 2018-12-09 21:30 | NUR ---
rn notes: pt pooped all over the floor. cleaned pt. complete linen changed provided. psych md saw how pt behave. pt really have difficult to control behavior.
--- NOTE | 2018-12-09 22:09 | NUR ---
PRN RISKOBYDAL: RECEIVED CALL FROM DR WARNER, PSYCH MD, INFORMED ABOUT PT'S BEHAVIOR. PER MD TO GIVE THE PRN RISPERDAL NOW.
--- NOTE | 2018-12-09 22:52 | NUR ---
rn notes: pt remains to be restless, agitated, wanting to leave his room, frequent redirection provided, but not effective. pt very confused. high risk for fall. explained to pt importance of safety. refusing any type of restraint.
[2018-12-09] MEDS: TEMAZEPAM 7.5 MG CAPSULE PO PRN (23:23)
--- NOTE | 2018-12-09 23:23 | NUR ---
PRN RESTORIL: ACCORDING TO PT'S PT HASNT BEEN SLEEPING FOR COUPLE OF DAYS NOW, REMAINS TO BE RESTLESS. PER CLINICAL ASSESSMENT, PRN RESTORIL ADMINISTERED AT THIS TIME.
--- NOTE | 2018-12-09 23:46 | NUR ---
RN NOTES: PT REMAINS TO BE AGITATED, REMOVING HIS IV ACCESS, DOES NOT LISTEN TO ANY DIRECTION. AT BED SIDE, JUST OBSERVING WHAT IS HAPPENING. REITERATE TO THE THAT PT IS HIGH RISK FOR FALL, AND PT KEPT TRYING TO GET OUT OF BED, VERY UNSTEADY, VERY DIFFICULT TO CONTROL BEHAVIOR.
--- NOTE | 2018-12-10 | NUR ---
RN NOTES: PT REMOVED HIS IV ACCESS, UNABLE TO RESTART NEW LINE PT BEEN RESTLESS, UNCOOPERATIVE, AGITATED, ANXIOUS.
[2018-12-10] MEDS: clonazePAM 0.5 MG TABLET PO PRN ×2 (00:38→21:47)
--- NOTE | 2018-12-10 00:38 | NUR ---
PRN KLONOPIN: ANXIOUS, RESTLESS, AGITATED, PRN KLONOPIN ADMINISTERED AT THIS TIME.
[2018-12-10 01:13] VITALS: BP 121/80
[2018-12-10] MEDS: ALBUTEROL FS 2.5 MG/3 ML VIAL.NEB IH SCH ×4 (01:30→19:30)
--- NOTE | 2018-12-10 01:45 | NUR ---
RN NOTES: SPOKED TO CONSTRUCTION SALES MANAGER OF [employer], INFORMED ABOUT PT'S BEHAVIOR, PER [employer] CHARGE PSYCH MD PLASTICS PROCESS HAND IS DR REED, GIVEN THE NUMBER [phone]. WILL NOTIFY
--- NOTE | 2018-12-10 02:00 | NUR ---
RN NOTES: PT NOTED TO BE TRYING TO GET OUT OF BED, PULLED OUT IV, UNABLE TO MANAGE BEHAVIOR, PAGED PSYCH DIGITAL MEDIA REPRESENTATIVE [phone]
--- NOTE | 2018-12-10 02:50 | NUR ---
RN NOTES: PT STARTED BECOMING AGGRESSIVE, TRYING TO PULL HIMSELF OUT OF BED, VERY AGITATED AND RESTLESS, PAGED PSYCH MD LEGAL REFEREE AT [phone], AWAITING CALL BACK.
--- NOTE | 2018-12-10 03:14 | NUR ---
RN NOTES: PLACED A 3RD CALL TO PSYCH MD CONSTRUCTION PROJECT MGR, AWAITING FOR CALL BACK
--- NOTE | 2018-12-10 03:26 | NUR ---
RN NOTES: ASKED [employer] WEB PRODUCER REGARDING NUMBER TO CALL, PSYCH MD LADLE PULLER DR REED HASN'T CALL BACK, DESPITE BEING PAGED 3X. PER JR. JAVA DEVELOPER , TO CALL PSYCH DIRECTOR DR VERA [phone]. PAGED. RECEIVED CALL BACK AND INFORMED ABOUT PT'S BEHAVIOR, INFORMED ABOUT ALLERGY OF PT. PER MD T/O OF ZYPREXA 10MG IM X1 DOSE NOW. ORDER VERIFIED AND CARRIED OUT.
[2018-12-10 03:30] VITALS: BP 111/68
[2018-12-10] MEDS ORDERED: OLANZAPINE 10 MG VIAL IM ONE (03:30)
--- NOTE | 2018-12-10 03:37 | NUR ---
ZYPREXA IM X1 DOSE: ADMINISTERED ZYPREXA IM PER DR VERA'S ORDER FOR MANAGING PT'S BEHAVIOR.
--- NOTE | 2018-12-10 05:06 | NUR ---
RN NOTES: PT REMAINS TO BE AWAKE, RESTLESS , STILL TRYING TO GET OUT OF BED
--- NOTE | 2018-12-10 07:12 | NUR ---
RN CLOSING NOTES: PT IN BED, REMAINS CONFUSED, DISORIENTED, RESTLESS, TRYING TO REMOVE IV ACCESS. AWAKE ENTIRE NIGHT. . VS REMAINS STABLE, NEEDS ATTENDED. SAFETY PRECAUTIONS FOR FALL REMAINS ENGAGED, CALL LIGHT IN REACH, WILL ENDORSE TO DAY RN FOR CONTINUITY OF CARE.
[2018-12-10 07:29] LABS: BASOPHILS # (AUTO) 0.1 /CMM (0.0-0.2); BASOPHILS % (AUTO) 0.5 % (0.0-2.0); EOSINOPHILS % (AUTO) 0.7 % (0.0-6.0); HEMATOCRIT 41 % (39-51); HEMOGLOBIN 13.5 g/dL (13.5-17.5); LYMPHOCYTES # (AUTO) 1.5 /CMM (0.8-4.8); LYMPHOCYTES % (AUTO) 10.6 % (20.0-44.0); MEAN CORPUSCULAR HGB CONC 33 g/dl (31.0-36.0); MEAN CORPUSCULAR VOLUME 89 fL (80-96); MONOCYTES # (AUTO) 1.4 /CMM (0.1-1.30); MONOCYTES % (AUTO) 9.7 % (2.0-12.0); NEUTROPHILS # (AUTO) 11.2 /CMM (1.8-8.9); NEUTROPHILS % (AUTO) 78.5 % (43.0-81.0); PLATELET COUNT (AUTO) 172 /CMM (150-450); RED BLOOD CELL COUNT(AUTO) 4.55 MIL/uL (4.5-6.0); WHITE BLOOD COUNT (AUTO) 14.3 K/uL (4.3-11.0)
[2018-12-10 07:46] LABS: ALBUMIN 3.1 g/dL (3.4-5.0); BILIRUBIN,TOTAL 0.7 mg/dL (0.2-1.0); CALCIUM, SERUM 8.9 mg/dL (8.5-10.1); POTASSIUM 3.7 mmol/L (3.5-5.1); TOTAL PROTEIN, SERUM 7.5 g/dL (6.4-8.2)
[2018-12-10] MEDS: LEVOFLOXACIN (500MG) 500 MG TABLET PO SCH (08:33)
[2018-12-10] MEDS: FOLIC ACID 1 MG TABLET PO SCH (08:33)
[2018-12-10] MEDS: VALPROIC ACID 250 MG/5 ML UDC PO SCH ×3 (08:33→16:46)
[2018-12-10] MEDS: FAMOTIDINE (20 MG) 20 MG TABLET PO SCH ×2 (08:33→16:49)
[2018-12-10] MEDS: THIAMINE HCL 100 MG TABLET PO SCH (08:34)
[2018-12-10] MEDS: BENZTROPINE MESYLATE (1 MG) 1 MG TABLET PO SCH ×3 (08:34→20:39)
[2018-12-10] MEDS: ASCORBIC ACID 500 MG TABLET PO SCH ×2 (08:34→16:49)
[2018-12-10] MEDS: MULTIVITAMINS,THERAGRAN 1 UDTAB TABLET PO SCH (08:34)
[2018-12-10] MEDS: ASPIRIN 81 MG TAB.CHEW PO SCH (08:37)
[2018-12-10] MEDS: AMLODIPINE BESYLATE 10 MG TABLET PO SCH (08:37)
[2018-12-10] MEDS: MUPIROCIN OINT 2% 22 GM TUBE SCH ×2 (08:38→22:13)
[2018-12-10] MEDS: PROSOURCE / PROSTAT (PYXIS) 30 ML UDC PO SCH (08:40)
[2018-12-10] MEDS: DAKINS QUARTER STRENGTH (0.125%) 480 ML BOTTLE TOP SCH (09:00)
[2018-12-10] MEDS ORDERED: CLONIDINE HCL 0.3 MG/24H PTWK 1 EA PATCH TD SCH (09:00)
[2018-12-10] MEDS: HYDROGEL DRESSING 90 GM TUBE TP SCH (09:00)
[2018-12-10] MEDS: Z GUARD REMEDY 2 OZ OINT TP SCH (09:00)
--- NOTE | 2018-12-10 09:40 | NUR ---
morning PO meds administrated. Patient refused to eat breakfast. Will continue to monitor
[2018-12-10] MEDS: risperiDONE-M 0.5 MG TAB.RAPDIS PO SCH ×2 (12:38→20:39)
--- NOTE | 2018-12-10 14:42 | NUR ---
Patient sleeping in bed, easily arousal to name and touch.Sitter at bedside.
[2018-12-10 16:00] VITALS: BP 110/68
--- NOTE | 2018-12-10 18:46 | NUR ---
PATIENT CALM AND COOPERATIVE AT THIS TIME. ALL MEDS ADMINISTRATED . PATIENT WAS ABLE TO FEED HIMSELF DINNER. RESTING IN BED AT THIS MOMENT AND AT BEDSIDE. PATIENT HAD 2 EPISODES OF WATERY STOOL TODAY. WOUND CARE DONE. ALL NEEDS ATTENDED. SAFETY PRECAUTIONS REMAIN IN PLACE. SITTER AT BEDSIDE, CALL LIGHT WITHIN REACH.
--- NOTE | 2018-12-10 19:30 | NUR ---
rn initial notes: received report from jennifer funk. pt remains to be disorganized, confused, agitated at times, rambling words, at bed side. no iv access per [facility] policy. unsteady gait. side rails up x3 for safety, sitter at bed side. will continue to monitor pt [id number] for safety and any changes in behavior.
[2018-12-10 19:37] VITALS: BP 108/73
[2018-12-10 20:00] VITALS: BP 108/73
--- NOTE | 2018-12-10 21:00 | NUR ---
RN NOTES: PT REFUSING TREATMENT. EASILY AGITATED, VERY CONFUSED, AGGRESSIVE, WHENEVER WE START CLEANING HIS WOUND HE WILL TOUCH THE AREA AGAIN WITH HIS BARE HANDS, OR REMOVE DRESSING AFTERWARDS, REMOVED HIS DIAPER, AND IT WAS A CYCLE, UNTIL HE WILL START BECOMING UNPREDICTABLE AND COMBATIVE. IT IS UNSAFE FOR THE STAFF TO PROCEED.
[2018-12-10] MEDS: ATORVASTATIN 10 MG TABLET PO SCH (21:47)
--- NOTE | 2018-12-10 21:47 | NUR ---
PRN KLONOPIN: PT NOTED TO BE ANXIOUS, RESTLESS, AGITATED, PRN KLONOPIN ADMINISTERED AT THIS TIME
[2018-12-10] MEDS: ACETAMINOPHEN 325 MG TABLET PO PRN (21:52)
--- NOTE | 2018-12-10 21:52 | NUR ---
PRN TYLENOL: ACCDG TO PT'S PT C/O HEAD ACHE REQUESTING FOR TYLENOL:PRN TYLENOL ADMINISTERED AT THIS TIME
--- NOTE | 2018-12-10 22:13 | NUR ---
BACTROBAN ADMIN: UNABLE TO SCAN BARCODE, IT WAS RIPPED. ABLE TO APPLY OINTMENT ON PT'S NOSTRILS, WITNESSED BY SITTER AND AT BED SIDE
[2018-12-10] MEDS: risperiDONE-M 0.5 MG TAB.RAPDIS PO PRN (23:49)
--- NOTE | 2018-12-10 23:50 | NUR ---
prn risperdal: pt still restless, agitated,uncooperative trying to get out of bed multiple times, tried pulling out iv access, started becoming combative, saying profanity. prn risperdal administered at this time.
[2018-12-11] VITALS: BP 125/73
[2018-12-11] MEDS: TEMAZEPAM 7.5 MG CAPSULE PO PRN (00:54)
--- NOTE | 2018-12-11 00:54 | NUR ---
prn restoril: pt remains to be awake, agitated, awake the entire night yesterday/last night, remains to be restless, agitated, difficult to control behavior. per clinical assessment, prn restoril administered at this time.
[2018-12-11] MEDS: ALBUTEROL FS 2.5 MG/3 ML VIAL.NEB IH SCH ×2 (01:30→08:32)
--- NOTE | 2018-12-11 07:15 | NUR ---
RN CLOSING NOTES: PT APPEARS SLEEPY NOW, CALM, SITTER REMAINS AT BED SIDE. PT AWAKE THE ENTIRE SHIFT. VS REMAINS STABLE, NEEDS ATTENDED. SAFETY PRECAUTIONS FOR FALL REMAINS ENGAGED, CALL LIGHT IN REACH, WILL ENDORSE TO DAY RN FOR CONTINUITY OF CARE.
--- NOTE | 2018-12-11 07:20 | NUR ---
MS RN NOTES RECEIVED PATIENT IN BED, TRYING TO GET OOB AND SIROBING SELF. SITTER AT BEDSIDE. PATIENT CONFUSED AND RESTLESS. PROVIDED REDIRECTION, DISTRACTION AND REALITY ORIENTATION BUT TO NO AVAIL. OBSERVED PATIENT TALKING TO SELF. BED IB LOWEST POSITION, LOCKED. 1:1 SITTER AT SIDE. FREQUENTLY VISUALLY CHECKED.
[2018-12-11] MEDS: VALPROIC ACID 250 MG/5 ML UDC PO SCH ×2 (08:20→13:32)
[2018-12-11] MEDS: PROSOURCE / PROSTAT (PYXIS) 30 ML UDC PO SCH (08:20)
[2018-12-11] MEDS: BENZTROPINE MESYLATE (1 MG) 1 MG TABLET PO SCH ×2 (08:20→13:32)
[2018-12-11] MEDS: ASCORBIC ACID 500 MG TABLET PO SCH (08:20)
[2018-12-11] MEDS: FOLIC ACID 1 MG TABLET PO SCH (08:20)
[2018-12-11 08:21] VITALS: BP 116/56
[2018-12-11] MEDS: THIAMINE HCL 100 MG TABLET PO SCH (08:21)
[2018-12-11] MEDS: ASPIRIN 81 MG TAB.CHEW PO SCH (08:21)
[2018-12-11] MEDS: MULTIVITAMINS,THERAGRAN 1 UDTAB TABLET PO SCH (08:21)
[2018-12-11] MEDS: LEVOFLOXACIN (500MG) 500 MG TABLET PO SCH (08:21)
[2018-12-11] MEDS: AMLODIPINE BESYLATE 10 MG TABLET PO SCH (08:21)
[2018-12-11] MEDS: FAMOTIDINE (20 MG) 20 MG TABLET PO SCH (08:22)
[2018-12-11] MEDS: HYDROGEL DRESSING 90 GM TUBE TP SCH (08:23)
[2018-12-11] MEDS: DAKINS QUARTER STRENGTH (0.125%) 480 ML BOTTLE TOP SCH (08:24)
[2018-12-11] MEDS: MUPIROCIN OINT 2% 22 GM TUBE SCH (08:24)
[2018-12-11] MEDS: Z GUARD REMEDY 2 OZ OINT TP SCH (08:24)
[2018-12-11] MEDS: risperiDONE-M 0.5 MG TAB.RAPDIS PO SCH ×2 (11:03→13:32)
[2018-12-11 12:11] LABS: BASOPHILS # (AUTO) 0.1 /CMM (0.0-0.2); BASOPHILS % (AUTO) 0.5 % (0.0-2.0); EOSINOPHILS % (AUTO) 0.9 % (0.0-6.0); HEMATOCRIT 44 % (39-51); HEMOGLOBIN 14.7 g/dL (13.5-17.5); LYMPHOCYTES # (AUTO) 1.8 /CMM (0.8-4.8); LYMPHOCYTES % (AUTO) 12.3 % (20.0-44.0); MEAN CORPUSCULAR HGB CONC 33 g/dl (31.0-36.0); MEAN CORPUSCULAR VOLUME 90 fL (80-96); MONOCYTES # (AUTO) 1.1 /CMM (0.1-1.30); MONOCYTES % (AUTO) 7.9 % (2.0-12.0); NEUTROPHILS # (AUTO) 11.2 /CMM (1.8-8.9); NEUTROPHILS % (AUTO) 78.4 % (43.0-81.0); PLATELET COUNT (AUTO) 179 /CMM (150-450); WHITE BLOOD COUNT (AUTO) 14.2 K/uL (4.3-11.0)
--- NOTE | 2018-12-11 12:15 | NUR ---
MS RN NOTES RECEIVED A CALL FROM LAB AND SPOKE TO ANGIE REGARDING POSITIVE C-D-FF RESULT. PAGE EPIC, AWAITING FOR DR. NG FOR CALL BACK.
--- NOTE | 2018-12-11 12:28 | NUR ---
MS RN NOTES RECEIVED CALL FROM DR. NG, HE WILL SPEAK TO DR. WARNER. AND WILL CALL BACK FOR ORDERS REGARDING POSITIVE C-DIFF.
[2018-12-11 13:46] LABS: ALBUMIN 3.1 g/dL (3.4-5.0); BILIRUBIN,TOTAL 0.8 mg/dL (0.2-1.0); CALCIUM, SERUM 9.2 mg/dL (8.5-10.1); POTASSIUM 4.6 mmol/L (3.5-5.1); TOTAL PROTEIN, SERUM 7.9 g/dL (6.4-8.2)
--- NOTE | 2018-12-11 13:55 | NUR ---
MS RN NOTES PATIENT WITH ORDER FROM DR. WARNER FOR D/C HOLD, D/C [employer] WITH DX OF C-DIFF.
--- NOTE | 2018-12-11 13:56 | NUR ---
MS RN NOTES DR. WARNER'S ORDER READ BACK AND VERIFIED, NOTED AND CARRIED OUT. CHARGE NURSE AWARE. WILL D/C PATIENT PER POLICY.
== END 2018-12-11 14:00 | disposition short-term general hospital (02) | DRG 885 ==
LOC: GPS 23:21 → GPSOV2 12-05 08:00
PROVIDERS: ADMIT Psychiatry & Neurology Psychosomatic Medicine; ATTEND Family Medicine
DX: F29 Unspecified psychosis not due to a substance or known physiological condition (principal); G93.41 Metabolic encephalopathy; F03.91 Unspecified dementia, unspecified severity, with behavioral disturbance; N39.0 Urinary tract infection, site not specified; B96.1 Klebsiella pneumoniae [K. pneumoniae] as the cause of diseases classified elsewhere; E87.6 Hypokalemia; F32.9 Major depressive disorder, single episode, unspecified; I10 Essential (primary) hypertension; K21.9 Gastro-esophageal reflux disease without esophagitis; L89.159 Pressure ulcer of sacral region, unspecified stage; W18.30XA Fall on same level, unspecified, initial encounter; Y92.009 Unspecified place in unspecified non-institutional (private) residence as the place of occurrence of the external cause; Z82.49 Family history of ischemic heart disease and other diseases of the circulatory system; Z86.73 Personal history of transient ischemic attack (TIA), and cerebral infarction without residual deficits; Z91.19 Patient's noncompliance with other medical treatment and regimen; Z87.891 Personal history of nicotine dependence; L89.620 Pressure ulcer of left heel, unstageable; L89.610 Pressure ulcer of right heel, unstageable
CPT/HCPCS: 36415; 70450-TC; 80053-TC; 80061-TC; 82565-TC; 83735-TC; 84443-TC; 85025-TC; 87081-TC; 97116-TC; 97530-TC; A4216; A6248; A6253; A6403; J1956; J3411; J3490; J7030; J7060; J7120

== ENCOUNTER 2018-12-11 14:37 | Inpatient (IN) | payer MEDICARE, BC ==
[~2018-12-11] VITALS: Ht 177.8 cm; Wt 73.0 kg
[2018-12-11 08:00] VITALS: BP 116/53
[2018-12-11] MEDS ORDERED: Z GUARD REMEDY 2 OZ OINT TP PRN (16:00)
[2018-12-11] MEDS ORDERED: ONDANSETRON HCL/PF 4 MG/2 ML VIAL IVP PRN (16:00)
[2018-12-11] MEDS ORDERED: ACETAMINOPHEN 325 MG TABLET PO PRN ×2 (16:00)
[2018-12-11] MEDS ORDERED: clonazePAM 0.5 MG TABLET PO PRN (16:30)
[2018-12-11] MEDS ORDERED: clonazePAM 1 MG TABLET PO SCH (17:00)
[2018-12-11] MEDS: ASCORBIC ACID 500 MG TABLET PO SCH (17:43)
[2018-12-11] MEDS: LACTOBACILLUS RHAMNOSUS GG 1 EACH CAP.SPRINK PO SCH (17:43)
[2018-12-11] MEDS: METRONIDAZOLE 500 MG TABLET PO SCH (17:43)
[2018-12-11] MEDS: FAMOTIDINE (20 MG) 20 MG TABLET PO SCH (17:43)
[2018-12-11] MEDS: VANCOMYCIN HCL 125 MG/2.5 ML ORAL.SUSP PO SCH (18:18)
[2018-12-11 20:10] VITALS: BP 144/70
[2018-12-11] MEDS: VALPROIC ACID 250 MG/5 ML UDC PO SCH (22:17)
[2018-12-11] MEDS: risperiDONE-M 0.5 MG TAB.RAPDIS PO PRN (22:17)
[2018-12-12] MEDS: VANCOMYCIN HCL 125 MG/2.5 ML ORAL.SUSP PO SCH ×5 (00:32→23:36)
[2018-12-12] MEDS: METRONIDAZOLE 500 MG TABLET PO SCH ×4 (00:32→23:36)
[2018-12-12] MEDS: TEMAZEPAM 15 MG CAPSULE PO PRN ×2 (00:32→22:03)
[2018-12-12 07:30] LABS: BASOPHILS % (AUTO) 0.4 % (0.0-2.0); EOSINOPHILS % (AUTO) 0.3 % (0.0-6.0); HEMATOCRIT 42 % (39-51); LYMPHOCYTES # (AUTO) 1.3 /CMM (0.8-4.8); LYMPHOCYTES % (AUTO) 10.8 % (20.0-44.0); MEAN CORPUSCULAR HGB CONC 33 g/dl (31.0-36.0); MEAN CORPUSCULAR VOLUME 89 fL (80-96); MONOCYTES # (AUTO) 0.9 /CMM (0.1-1.30); MONOCYTES % (AUTO) 7.6 % (2.0-12.0); NEUTROPHILS # (AUTO) 9.5 /CMM (1.8-8.9); NEUTROPHILS % (AUTO) 80.9 % (43.0-81.0); PLATELET COUNT (AUTO) 168 /CMM (150-450); RED BLOOD CELL COUNT(AUTO) 4.71 MIL/uL (4.5-6.0); WHITE BLOOD COUNT (AUTO) 11.8 K/uL (4.3-11.0)
[2018-12-12 07:41] LABS: BILIRUBIN,TOTAL 0.7 mg/dL (0.2-1.0); CALCIUM, SERUM 9.1 mg/dL (8.5-10.1); CREATININE 0.9 mg/dL (0.6-1.3); MAGNESIUM 2.2 mg/dL (1.8-2.4); PHOSPHORUS 4.4 mg/dL (2.5-4.9); POTASSIUM 4.1 mmol/L (3.5-5.1); TOTAL PROTEIN, SERUM 7.6 g/dL (6.4-8.2)
[2018-12-12] MEDS: FOLIC ACID 1 MG TABLET PO SCH (08:41)
[2018-12-12] MEDS: FAMOTIDINE (20 MG) 20 MG TABLET PO SCH ×2 (08:41→17:47)
[2018-12-12] MEDS: LACTOBACILLUS RHAMNOSUS GG 1 EACH CAP.SPRINK PO SCH ×2 (08:41→17:48)
[2018-12-12] MEDS: ASCORBIC ACID 500 MG TABLET PO SCH ×2 (08:41→17:48)
[2018-12-12] MEDS: BENZTROPINE MESYLATE (1 MG) 1 MG TABLET PO SCH ×3 (08:41→20:15)
[2018-12-12] MEDS: VALPROIC ACID 250 MG/5 ML UDC PO SCH ×2 (08:41→20:15)
[2018-12-12] MEDS: PROSOURCE / PROSTAT (PYXIS) 30 ML UDC PO SCH (08:42)
[2018-12-12] MEDS: risperiDONE-M 0.5 MG TAB.RAPDIS PO SCH ×3 (08:42→20:15)
[2018-12-12] MEDS: AMLODIPINE BESYLATE 10 MG TABLET PO SCH (08:43)
[2018-12-12] MEDS: IV NS 0.9% 1,000 ML IV PRN (17:47)
[2018-12-12] MEDS: DIVALPROEX SODIUM 250 MG TABLET.DR PO SCH (17:48)
[2018-12-12] MEDS: ALBUTEROL FS 2.5 MG/3 ML VIAL.NEB IH SCH (19:30)
[2018-12-12] MEDS: clonazePAM 0.5 MG TABLET PO PRN (20:14)
[2018-12-12 20:37] LABS: APPEARANCE,URINE CLOUDY (CLEAR); BILIRUBIN,URINE NEGATIVE (NEGATIVE); BLOOD, URINE NEGATIVE Ery/uL (NEGATIVE); COLOR,URINE DARK YELLO (YELLOW); KETONES,URINE NEGATIVE (NEGATIVE); LEUKOCYTE ESTERASE ,URINE NEGATIVE (NEGATIVE); NITRITE, URINE POSITIVE (NEGATIVE); PH,URINE 5.5 (5.0-8.0); PROTEIN,URINE TRACE mg/dl (NEGATIVE); UGLUCOSE NEGATIVE (NEGATIVE); UROBILINOGEN,URINE 0.2 EU/dL (0.2)
[2018-12-12 21:24] LABS: BACTERIA,URINE Few /HPF (None Seen); RBC,URINE 0-2 /HPF (0-2); SQUAMOUS EPITHELIAL CELL,UR None Seen /HPF (None Seen); WBC,URINE 0-2 /HPF (0-3)
[2018-12-12 21:25] LABS: URINE AMORPHOUS URATE Many /HPF (None Seen)
[2018-12-13] MEDS: risperiDONE-M 0.5 MG TAB.RAPDIS PO PRN ×2 (00:42→23:00)
[2018-12-13] MEDS: ALBUTEROL FS 2.5 MG/3 ML VIAL.NEB IH SCH ×4 (01:30→19:30)
[2018-12-13] MEDS: clonazePAM 0.5 MG TABLET PO PRN ×2 (04:18→21:32)
[2018-12-13] MEDS ORDERED: QUETIAPINE FUMARATE 25 MG TABLET PO ONE (05:00)
[2018-12-13] MEDS: VANCOMYCIN HCL 125 MG/2.5 ML ORAL.SUSP PO SCH ×4 (06:15→23:01)
[2018-12-13 07:01] LABS: BASOPHILS % (AUTO) 0.5 % (0.0-2.0); EOSINOPHILS % (AUTO) 1.7 % (0.0-6.0); HEMATOCRIT 40 % (39-51); HEMOGLOBIN 13.3 g/dL (13.5-17.5); LYMPHOCYTES # (AUTO) 1.2 /CMM (0.8-4.8); LYMPHOCYTES % (AUTO) 13.7 % (20.0-44.0); MEAN CORPUSCULAR HGB CONC 33 g/dl (31.0-36.0); MEAN CORPUSCULAR VOLUME 90 fL (80-96); MONOCYTES # (AUTO) 0.9 /CMM (0.1-1.30); MONOCYTES % (AUTO) 9.9 % (2.0-12.0); NEUTROPHILS # (AUTO) 6.7 /CMM (1.8-8.9); NEUTROPHILS % (AUTO) 74.2 % (43.0-81.0); PLATELET COUNT (AUTO) 158 /CMM (150-450); RED BLOOD CELL COUNT(AUTO) 4.48 MIL/uL (4.5-6.0)
[2018-12-13 07:21] LABS: CALCIUM, SERUM 8.6 mg/dL (8.5-10.1); CREATININE 0.8 mg/dL (0.6-1.3); MAGNESIUM 2.2 mg/dL (1.8-2.4); PHOSPHORUS 3.5 mg/dL (2.5-4.9); POTASSIUM 3.3 mmol/L (3.5-5.1)
[2018-12-13] MEDS: IV NS 0.9% 1,000 ML IV PRN (08:05)
[2018-12-13] MEDS: risperiDONE-M 0.5 MG TAB.RAPDIS PO SCH ×2 (09:00→12:26)
[2018-12-13] MEDS: METRONIDAZOLE 500 MG TABLET PO SCH ×3 (09:24→23:01)
[2018-12-13] MEDS: VALPROIC ACID 250 MG/5 ML UDC PO SCH ×2 (09:46→21:05)
[2018-12-13] MEDS: FOLIC ACID 1 MG TABLET PO SCH (09:46)
[2018-12-13] MEDS: LACTOBACILLUS RHAMNOSUS GG 1 EACH CAP.SPRINK PO SCH ×2 (09:46→16:57)
[2018-12-13] MEDS: ASCORBIC ACID 500 MG TABLET PO SCH ×2 (09:47→16:57)
[2018-12-13] MEDS: AMLODIPINE BESYLATE 10 MG TABLET PO SCH (09:47)
[2018-12-13] MEDS: BENZTROPINE MESYLATE (1 MG) 1 MG TABLET PO SCH ×3 (09:47→21:05)
[2018-12-13] MEDS: FAMOTIDINE (20 MG) 20 MG TABLET PO SCH ×2 (09:47→16:58)
[2018-12-13] MEDS: PROSOURCE / PROSTAT (PYXIS) 30 ML UDC PO SCH (09:48)
[2018-12-13] MEDS ORDERED: POTASSIUM CHLORIDE 20 MEQ TAB.PRT.SR PO SCH (11:30)
[2018-12-13] MEDS: DIVALPROEX SODIUM 250 MG TABLET.DR PO SCH (16:58)
[2018-12-13] MEDS ORDERED: QUETIAPINE FUMARATE 25 MG TABLET PO PRN (17:00)
[2018-12-13 17:11] VITALS: BP 121/58
[2018-12-13 20:36] VITALS: BP 117/75
[2018-12-13] MEDS: TEMAZEPAM 15 MG CAPSULE PO PRN (21:05)
[2018-12-14] MEDS ORDERED: OLANZAPINE 10 MG VIAL IM ONE (00:30)
[2018-12-14] MEDS: ALBUTEROL FS 2.5 MG/3 ML VIAL.NEB IH SCH ×4 (02:45→19:30)
[2018-12-14] MEDS: VANCOMYCIN HCL 125 MG/2.5 ML ORAL.SUSP PO SCH ×4 (06:08→23:18)
[2018-12-14 06:27] LABS: BASOPHILS % (AUTO) 0.6 % (0.0-2.0); EOSINOPHILS % (AUTO) 3.4 % (0.0-6.0); HEMATOCRIT 39 % (39-51); HEMOGLOBIN 12.9 g/dL (13.5-17.5); LYMPHOCYTES # (AUTO) 1.6 /CMM (0.8-4.8); LYMPHOCYTES % (AUTO) 22.3 % (20.0-44.0); MEAN CORPUSCULAR HGB CONC 33 g/dl (31.0-36.0); MEAN CORPUSCULAR VOLUME 89 fL (80-96); MONOCYTES # (AUTO) 0.7 /CMM (0.1-1.30); MONOCYTES % (AUTO) 10.2 % (2.0-12.0); NEUTROPHILS # (AUTO) 4.6 /CMM (1.8-8.9); NEUTROPHILS % (AUTO) 63.5 % (43.0-81.0); PLATELET COUNT (AUTO) 162 /CMM (150-450); RED BLOOD CELL COUNT(AUTO) 4.39 MIL/uL (4.5-6.0); WHITE BLOOD COUNT (AUTO) 7.2 K/uL (4.3-11.0)
[2018-12-14 06:33] LABS: ALBUMIN 2.7 g/dL (3.4-5.0); BILIRUBIN,TOTAL 0.4 mg/dL (0.2-1.0); CALCIUM, SERUM 8.3 mg/dL (8.5-10.1); CREATININE 0.7 mg/dL (0.6-1.3); MAGNESIUM 2.1 mg/dL (1.8-2.4); POTASSIUM 3.5 mmol/L (3.5-5.1); TOTAL PROTEIN, SERUM 6.7 g/dL (6.4-8.2)
[2018-12-14] MEDS: IV NS 0.9% 1,000 ML IV PRN ×2 (06:52→15:29)
[2018-12-14 08:00] VITALS: BP 117/63
[2018-12-14] MEDS: METRONIDAZOLE 500 MG TABLET PO SCH ×3 (08:08→23:18)
[2018-12-14] MEDS: AMLODIPINE BESYLATE 10 MG TABLET PO SCH (08:08)
[2018-12-14] MEDS: ASCORBIC ACID 500 MG TABLET PO SCH ×2 (08:08→16:07)
[2018-12-14] MEDS: FOLIC ACID 1 MG TABLET PO SCH (08:08)
[2018-12-14] MEDS: LACTOBACILLUS RHAMNOSUS GG 1 EACH CAP.SPRINK PO SCH ×2 (08:08→16:07)
[2018-12-14] MEDS: BENZTROPINE MESYLATE (1 MG) 1 MG TABLET PO SCH (08:08)
[2018-12-14] MEDS: FAMOTIDINE (20 MG) 20 MG TABLET PO SCH ×2 (08:08→16:07)
[2018-12-14] MEDS: VALPROIC ACID 250 MG/5 ML UDC PO SCH ×2 (08:08→20:56)
[2018-12-14] MEDS: PROSOURCE / PROSTAT (PYXIS) 30 ML UDC PO SCH (08:10)
[2018-12-14] MEDS: buPROPion SR 100 MG TABLET.ER PO SCH (08:42)
[2018-12-14] MEDS ORDERED: QUETIAPINE FUMARATE 25 MG TABLET PO PRN (09:00)
[2018-12-14] MEDS ORDERED: FEE PK DOSING 1 MIN EA MC ONE (15:16)
[2018-12-14 16:00] VITALS: BP 131/55
[2018-12-14] MEDS: VANCOMYCIN 1 GM in IV D5W 250 ML IV SCH (16:12)
[2018-12-14 20:00] VITALS: BP 136/87
[2018-12-14] MEDS ORDERED: QUETIAPINE FUMARATE 25 MG TABLET PO SCH ×2 (20:00)
[2018-12-14] MEDS: ALPRAZOLAM 0.5 MG TABLET PO PRN (20:55)
[2018-12-14] MEDS: TEMAZEPAM 15 MG CAPSULE PO PRN (20:58)
[2018-12-14] MEDS: QUETIAPINE FUMARATE 25 MG TABLET PO SCH (22:01)
[2018-12-15] MEDS: IV NS 0.9% 1,000 ML IV PRN ×2 (00:27→09:33)
[2018-12-15] MEDS: ALBUTEROL FS 2.5 MG/3 ML VIAL.NEB IH SCH ×4 (01:30→19:30)
[2018-12-15] MEDS: ALPRAZOLAM 0.5 MG TABLET PO PRN (03:20)
[2018-12-15] MEDS: VANCOMYCIN 1 GM in IV D5W 250 ML IV SCH ×2 (03:47→16:08)
[2018-12-15] MEDS: VANCOMYCIN HCL 125 MG/2.5 ML ORAL.SUSP PO SCH ×4 (05:37→23:13)
[2018-12-15 06:45] LABS: BASOPHILS # (AUTO) 0.1 /CMM (0.0-0.2); EOSINOPHILS % (AUTO) 3.3 % (0.0-6.0); HEMATOCRIT 37 % (39-51); HEMOGLOBIN 12.4 g/dL (13.5-17.5); LYMPHOCYTES # (AUTO) 1.8 /CMM (0.8-4.8); LYMPHOCYTES % (AUTO) 28.5 % (20.0-44.0); MEAN CORPUSCULAR HGB CONC 34 g/dl (31.0-36.0); MEAN CORPUSCULAR VOLUME 88 fL (80-96); MONOCYTES # (AUTO) 0.7 /CMM (0.1-1.30); MONOCYTES % (AUTO) 10.1 % (2.0-12.0); NEUTROPHILS # (AUTO) 3.7 /CMM (1.8-8.9); NEUTROPHILS % (AUTO) 57.1 % (43.0-81.0); PLATELET COUNT (AUTO) 159 /CMM (150-450); RED BLOOD CELL COUNT(AUTO) 4.17 MIL/uL (4.5-6.0); WHITE BLOOD COUNT (AUTO) 6.5 K/uL (4.3-11.0)
[2018-12-15 06:58] LABS: CALCIUM, SERUM 8.1 mg/dL (8.5-10.1); CREATININE 0.6 mg/dL (0.6-1.3); MAGNESIUM 2.1 mg/dL (1.8-2.4); PHOSPHORUS 2.9 mg/dL (2.5-4.9); POTASSIUM 3.5 mmol/L (3.5-5.1)
[2018-12-15 08:00] VITALS: BP 131/71
[2018-12-15] MEDS: buPROPion SR 100 MG TABLET.ER PO SCH (08:12)
[2018-12-15] MEDS: LACTOBACILLUS RHAMNOSUS GG 1 EACH CAP.SPRINK PO SCH ×2 (08:14→16:07)
[2018-12-15] MEDS: FAMOTIDINE (20 MG) 20 MG TABLET PO SCH ×2 (08:14→16:07)
[2018-12-15] MEDS: FOLIC ACID 1 MG TABLET PO SCH (08:14)
[2018-12-15] MEDS: ASCORBIC ACID 500 MG TABLET PO SCH ×2 (08:14→16:21)
[2018-12-15] MEDS: METRONIDAZOLE 500 MG TABLET PO SCH ×3 (08:14→23:16)
[2018-12-15] MEDS: AMLODIPINE BESYLATE 10 MG TABLET PO SCH (08:15)
[2018-12-15] MEDS: VALPROIC ACID 250 MG/5 ML UDC PO SCH ×2 (08:15→21:59)
[2018-12-15] MEDS: PROSOURCE / PROSTAT (PYXIS) 30 ML UDC PO SCH (08:16)
[2018-12-15] MEDS: DAKINS HALF STRENGTH (0.25%) 480 ML BOTTLE TOP SCH (08:17)
[2018-12-15 16:35] VITALS: BP 101/56
[2018-12-15 20:00] VITALS: BP 122/81
[2018-12-15] MEDS: QUETIAPINE FUMARATE 25 MG TABLET PO SCH (22:00)
[2018-12-15] MEDS: TEMAZEPAM 15 MG CAPSULE PO PRN (22:03)
[2018-12-16] MEDS: ALBUTEROL FS 2.5 MG/3 ML VIAL.NEB IH SCH ×4 (01:30→18:57)
[2018-12-16] MEDS: VANCOMYCIN 1 GM in IV D5W 250 ML IV SCH ×2 (03:55→16:21)
[2018-12-16] MEDS: VANCOMYCIN HCL 125 MG/2.5 ML ORAL.SUSP PO SCH ×3 (06:02→17:35)
[2018-12-16 08:00] VITALS: BP 130/74
[2018-12-16 08:23] LABS: BASOPHILS # (AUTO) 0.1 /CMM (0.0-0.2); BASOPHILS % (AUTO) 0.8 % (0.0-2.0); EOSINOPHILS % (AUTO) 3.2 % (0.0-6.0); HEMATOCRIT 38 % (39-51); HEMOGLOBIN 12.7 g/dL (13.5-17.5); LYMPHOCYTES # (AUTO) 1.9 /CMM (0.8-4.8); LYMPHOCYTES % (AUTO) 29.6 % (20.0-44.0); MEAN CORPUSCULAR HGB CONC 33 g/dl (31.0-36.0); MEAN CORPUSCULAR VOLUME 89 fL (80-96); MONOCYTES # (AUTO) 0.6 /CMM (0.1-1.30); MONOCYTES % (AUTO) 9.2 % (2.0-12.0); NEUTROPHILS # (AUTO) 3.7 /CMM (1.8-8.9); NEUTROPHILS % (AUTO) 57.2 % (43.0-81.0); PLATELET COUNT (AUTO) 152 /CMM (150-450); RED BLOOD CELL COUNT(AUTO) 4.28 MIL/uL (4.5-6.0); WHITE BLOOD COUNT (AUTO) 6.4 K/uL (4.3-11.0)
[2018-12-16] MEDS: AMLODIPINE BESYLATE 10 MG TABLET PO SCH (08:38)
[2018-12-16] MEDS: LACTOBACILLUS RHAMNOSUS GG 1 EACH CAP.SPRINK PO SCH ×2 (08:38→17:35)
[2018-12-16] MEDS: METRONIDAZOLE 500 MG TABLET PO SCH ×2 (08:38→17:38)
[2018-12-16] MEDS: VALPROIC ACID 250 MG/5 ML UDC PO SCH ×2 (08:38→20:05)
[2018-12-16] MEDS: ASCORBIC ACID 500 MG TABLET PO SCH ×2 (08:39→17:35)
[2018-12-16] MEDS: FAMOTIDINE (20 MG) 20 MG TABLET PO SCH ×2 (08:39→17:35)
[2018-12-16] MEDS: FOLIC ACID 1 MG TABLET PO SCH (08:39)
[2018-12-16 08:43] LABS: CALCIUM, SERUM 8.1 mg/dL (8.5-10.1); CREATININE 0.6 mg/dL (0.6-1.3); PHOSPHORUS 3.3 mg/dL (2.5-4.9); POTASSIUM 3.4 mmol/L (3.5-5.1)
[2018-12-16] MEDS: PROSOURCE / PROSTAT (PYXIS) 30 ML UDC PO SCH (08:56)
[2018-12-16] MEDS: DAKINS HALF STRENGTH (0.25%) 480 ML BOTTLE TOP SCH (09:04)
[2018-12-16] MEDS: buPROPion SR 100 MG TABLET.ER PO SCH (09:25)
[2018-12-16] MEDS: POTASSIUM CHLORIDE 20 MEQ TAB.PRT.SR PO SCH ×3 (10:07→13:35)
[2018-12-16 16:00] VITALS: BP 106/69
[2018-12-16] MEDS: LINEZOLID 600 MG TABLET PO SCH (20:05)
[2018-12-16] MEDS: QUETIAPINE FUMARATE 25 MG TABLET PO SCH (21:13)
[2018-12-16] MEDS: ALPRAZOLAM 0.5 MG TABLET PO PRN (22:37)
[2018-12-17] MEDS: VANCOMYCIN HCL 125 MG/2.5 ML ORAL.SUSP PO SCH ×5 (00:02→23:16)
[2018-12-17] MEDS: ALBUTEROL FS 2.5 MG/3 ML VIAL.NEB IH SCH ×4 (01:30→19:26)
[2018-12-17] MEDS: TEMAZEPAM 15 MG CAPSULE PO PRN ×2 (02:03→21:32)
[2018-12-17] MEDS: IV NS 0.9% 1,000 ML IV PRN (02:36)
[2018-12-17 07:19] LABS: BASOPHILS # (AUTO) 0.1 /CMM (0.0-0.2); EOSINOPHILS % (AUTO) 3.5 % (0.0-6.0); HEMATOCRIT 39 % (39-51); HEMOGLOBIN 13.1 g/dL (13.5-17.5); LYMPHOCYTES # (AUTO) 1.5 /CMM (0.8-4.8); LYMPHOCYTES % (AUTO) 24.7 % (20.0-44.0); MEAN CORPUSCULAR HGB CONC 34 g/dl (31.0-36.0); MEAN CORPUSCULAR VOLUME 88 fL (80-96); MONOCYTES # (AUTO) 0.7 /CMM (0.1-1.30); MONOCYTES % (AUTO) 11.1 % (2.0-12.0); NEUTROPHILS # (AUTO) 3.6 /CMM (1.8-8.9); NEUTROPHILS % (AUTO) 59.7 % (43.0-81.0); PLATELET COUNT (AUTO) 141 /CMM (150-450); WHITE BLOOD COUNT (AUTO) 6.1 K/uL (4.3-11.0)
[2018-12-17 07:45] LABS: CALCIUM, SERUM 8.5 mg/dL (8.5-10.1); CREATININE 0.6 mg/dL (0.6-1.3); POTASSIUM 3.8 mmol/L (3.5-5.1)
[2018-12-17 08:00] VITALS: BP_SYST 128; BP_SYST 146; BP_SYST 150; BP_DIAS 68; BP_DIAS 72; BP_DIAS 78
[2018-12-17] MEDS ORDERED: CLONIDINE HCL 0.3 MG/24H PTWK 1 EA PATCH TD SCH (09:00)
[2018-12-17] MEDS: VALPROIC ACID 250 MG/5 ML UDC PO SCH ×2 (09:44→20:25)
[2018-12-17] MEDS: POTASSIUM CHLORIDE 20 MEQ TAB.PRT.SR PO SCH ×3 (09:44→13:03)
[2018-12-17] MEDS: PROSOURCE / PROSTAT (PYXIS) 30 ML UDC PO SCH (09:44)
[2018-12-17] MEDS: LACTOBACILLUS RHAMNOSUS GG 1 EACH CAP.SPRINK PO SCH ×2 (09:45→17:31)
[2018-12-17] MEDS: LINEZOLID 600 MG TABLET PO SCH ×2 (09:45→20:25)
[2018-12-17] MEDS: ASCORBIC ACID 500 MG TABLET PO SCH ×2 (09:45→17:31)
[2018-12-17] MEDS: VALSARTAN 80 MG TABLET PO SCH (09:46)
[2018-12-17] MEDS: FAMOTIDINE (20 MG) 20 MG TABLET PO SCH ×2 (09:46→17:31)
[2018-12-17] MEDS: FOLIC ACID 1 MG TABLET PO SCH (09:46)
[2018-12-17] MEDS: buPROPion SR 100 MG TABLET.ER PO SCH (09:46)
[2018-12-17] MEDS: DAKINS HALF STRENGTH (0.25%) 480 ML BOTTLE TOP SCH (09:48)
[2018-12-17 20:00] VITALS: BP 128/72
[2018-12-17] MEDS: QUETIAPINE FUMARATE 25 MG TABLET PO SCH (21:00)
[2018-12-17] MEDS: ALPRAZOLAM 0.5 MG TABLET PO PRN (22:04)
[2018-12-18] MEDS: ALBUTEROL FS 2.5 MG/3 ML VIAL.NEB IH SCH ×3 (01:30→13:30)
[2018-12-18] MEDS: VANCOMYCIN HCL 125 MG/2.5 ML ORAL.SUSP PO SCH ×3 (05:55→17:20)
[2018-12-18 06:21] LABS: CALCIUM, SERUM 8.4 mg/dL (8.5-10.1); CREATININE 0.7 mg/dL (0.6-1.3); POTASSIUM 3.9 mmol/L (3.5-5.1)
[2018-12-18] MEDS: LACTOBACILLUS RHAMNOSUS GG 1 EACH CAP.SPRINK PO SCH ×2 (08:17→16:21)
[2018-12-18] MEDS: LINEZOLID 600 MG TABLET PO SCH (08:17)
[2018-12-18] MEDS: VALSARTAN 80 MG TABLET PO SCH (08:17)
[2018-12-18] MEDS: VALPROIC ACID 250 MG/5 ML UDC PO SCH (08:17)
[2018-12-18] MEDS: FOLIC ACID 1 MG TABLET PO SCH (08:17)
[2018-12-18] MEDS: FAMOTIDINE (20 MG) 20 MG TABLET PO SCH ×2 (08:17→16:21)
[2018-12-18] MEDS: ASCORBIC ACID 500 MG TABLET PO SCH ×2 (08:17→16:21)
[2018-12-18] MEDS: buPROPion SR 100 MG TABLET.ER PO SCH (08:17)
[2018-12-18] MEDS: PROSOURCE / PROSTAT (PYXIS) 30 ML UDC PO SCH (08:19)
[2018-12-18] MEDS: DAKINS HALF STRENGTH (0.25%) 480 ML BOTTLE TOP SCH (09:03)
[2018-12-18] MEDS ORDERED: POTASSIUM CHLORIDE 20 MEQ TAB.PRT.SR PO ONE (10:30)
[2018-12-18 16:00] VITALS: BP 139/78
[2018-12-18] MEDS: ALPRAZOLAM 0.5 MG TABLET PO PRN (16:21)
[2018-12-18] MEDS ORDERED: VALP250S3 PO (17:01)
[2018-12-18] MEDS ORDERED: ACET325T53 PO (17:01)
[2018-12-18] MEDS ORDERED: VANC125C11 PO (17:01)
[2018-12-18] MEDS ORDERED: BUPR100T6 PO (17:01)
[2018-12-18] MEDS ORDERED: VALS80TA2 PO (17:01)
[2018-12-18] MEDS ORDERED: SODI480S2 TOP (17:01)
[2018-12-18] MEDS ORDERED: Linezolid PO (17:01)
[2018-12-18] MEDS ORDERED: TEMA15CA5 PO (17:01)
[2018-12-18] MEDS ORDERED: ALPR0.5T8 PO (17:01)
[2018-12-18] MEDS ORDERED: QUET25TA PO (17:01)
== END 2018-12-18 18:04 | DRG 356 ==
LOC: MEDSG2 14:37 → MED 12-15 20:05
PROVIDERS: ADMIT Registered Nurse; ATTEND Registered Nurse
PROC: 0JBR0ZZ Excision of Left Foot Subcutaneous Tissue and Fascia, Open Approach (ICD-10-PCS; principal; 2018-12-14)
PROC: 0JBP0ZZ Excision of Left Lower Leg Subcutaneous Tissue and Fascia, Open Approach (ICD-10-PCS; 2018-12-14)
PROC: 0JB70ZZ Excision of Back Subcutaneous Tissue and Fascia, Open Approach (ICD-10-PCS; 2018-12-17)
DX: A04.72 Enterocolitis due to Clostridium difficile, not specified as recurrent (principal); L89.153 Pressure ulcer of sacral region, stage 3; L89.623 Pressure ulcer of left heel, stage 3; L89.893 Pressure ulcer of other site, stage 3; G92 Toxic encephalopathy; N39.0 Urinary tract infection, site not specified; E87.0 Hyperosmolality and hypernatremia; F02.81 Dementia in other diseases classified elsewhere, unspecified severity, with behavioral disturbance; E44.1 Mild protein-calorie malnutrition; K21.9 Gastro-esophageal reflux disease without esophagitis; I10 Essential (primary) hypertension; E86.0 Dehydration; E87.6 Hypokalemia; G20 Parkinson's disease; F32.9 Major depressive disorder, single episode, unspecified; G40.909 Epilepsy, unspecified, not intractable, without status epilepticus; Z91.19 Patient's noncompliance with other medical treatment and regimen; B96.1 Klebsiella pneumoniae [K. pneumoniae] as the cause of diseases classified elsewhere; Z91.81 History of falling; Z87.891 Personal history of nicotine dependence; Z86.73 Personal history of transient ischemic attack (TIA), and cerebral infarction without residual deficits; Z86.19 Personal history of other infectious and parasitic diseases; Z82.49 Family history of ischemic heart disease and other diseases of the circulatory system; Z73.6 Limitation of activities due to disability; F10.10 Alcohol abuse, uncomplicated; Y90.9 Presence of alcohol in blood, level not specified; S00.03XA Contusion of scalp, initial encounter; W18.30XA Fall on same level, unspecified, initial encounter; Y92.009 Unspecified place in unspecified non-institutional (private) residence as the place of occurrence of the external cause; G47.00 Insomnia, unspecified; B95.61 Methicillin susceptible Staphylococcus aureus infection as the cause of diseases classified elsewhere; B95.5 Unspecified streptococcus as the cause of diseases classified elsewhere
CPT/HCPCS: 36415; 80048-TC; 80053-TC; 80061-TC; 80164-TC; 80202-TC; 81000-TC; 83735-TC; 84100-TC; 85025-TC; 87070-TC; 87081-TC; 87086-TC; 92526; 92611-TC; 94799-TC; 97110-TC; 97112-TC; 97116-TC; 97530-TC; 97535-TC; A4349; A6253; A6403; G0378; J3370; J3490; J7030; J7060